=== PATIENT | female | born 1975 | race Caucasian/White ===

== ENCOUNTER 2025-04-24 11:27 | Emergency (ER) | payer MEDICARE, OTHER, SELFPAY ==
--- OUTSIDE RECORDS SUMMARY | 2025-04-23 08:45 | XMS_ITS | Encounter Summary ---
Author Organization [facility] Address 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 Name Role Phone Unavailable Primary Care Provider Unavailabl e Reason for Visit * Eval and Treat (Routine) - Authorized Specialty Diagnoses / Procedures Referred By Nba linares Referred To Contact Occupational Therapy Diagnoses cog Procedures OT EVAL AND TREAT OT EVALUATION Lidia Heck PA-C [address] [place] [address] Phone: tel: fax: Laury Steen Occupational Therapist Referral ID Status Reason Start Date Expiration Date V isits Requested Visits Authorized [id number] Authorized 02/01/2025 01/16/2026 1 99 Encounter Details Date Type Department Care Team (Late st Contact Info) Description 04/23/2025 8:45 AM CDT - 04/23/2025 11:59 PM CDT Hospital Encounter [facility] Occupational Therapy Services [address] [facility] [address] [facility] [address] [place] [phone] Lidia Heck PA-C [address] [place] [address] Laury Steen Occupational Therapist Arrived Discharge Disposition: Home or Self Care Social History Tobacco Use Types Packs/Day Years Used Date Smoking Tobacco: Never Smokeless Tobacco: Never Alcohol Use Standard Drinks/Week Comments Never 0 (1 standard drink = 0.6 oz pur e alcohol) Comments Unknown Sex and Gender Information Value Date Recorded Sex Assigned at Not on file 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 60 Tablet 1 04/18/2025 PARoxetine HCl (PAXIL) 20 mg tablet Take 1 Tablet (20 mg) by mouth daily. 30 Tablet 1 04/18/2025 05/18/2025 ALPRAZolam (XANAX XR) 0.5 mg Extended Release 24 hour tabletIndications :ILA (generalized anxiety disorder) Take 1 Tablet (0.5 mg) by mouth 2 times daily. 60 Tablet 04/18/2025 amLODIPine (NORVASC) 10 mg tablet Take 10 mg by mouth daily. nortriptyline (PAMELOR) 50 mg capsule Take 50 mg by mouth daily at bedtime. pantoprazole (PROTONIX) 40 mg Tablet, Delayed Release (E.C.) Take 40 mg by mouth daily. prochlorperazine maleate (COMPAZINE) 10 mg tablet Take 10 mg by mouth every 6 hours as needed for Nausea/Emesis . multivitamin (DAILY-MILLIE) tablet Take 1 Tablet by mouth daily. gabapentin (NEURONTIN) 300 mg capsule Take 300 mg by mouth 2 times daily. propranoloL (INDERAL) 20 mg tablet Take 20 mg by mouth 2 times daily. folic acid (FOLVITE) 1 mg tablet Take 1 mg by mouth daily. baclofen (LIORESAL) 10 mg tablet Take 5 mg by mouth 2 times daily. 5 mg in AM and 10 mg at night documented as of this encounter Miscellaneous Notes * Therapy Treatment - Laury Steen, Occupational Therapist - 04/23/2025 9:00 AM CDT Images from the original note were not included. Outpatient Occupational Therapy Adult Daily Documentation [address] [place] [phone] Patient Name: Linh Wang Date of : 1975 Referring Physician(s): Lidia Heck PA-C Insurance Name: Payor: MEDICARE / Plan: MEDICARE PART A AND B / Product Type: Medicare / Visit No.: 9 Authorized Visits: Medical necessity Visits until Progress Note: 9/10 Today's Date: 04/23/2025 Initial Exam/SOC date: 02/01/2025 Diagnosis: G83.4 Cauda Equina syndrome Treatment Diagnosis: R41.89: Other symptoms and signs involving cognitive functions and awareness Time In: 900 Time Out: 1000 Total Treatment Time: 60 Medical Precautions: fall precautions SUBJECTIVE Current complaints/Gains: Pt feels like her tremors are gone, she feels more mental clarity and improved memory. Pt reports she and her split up over the weekend due to his worsening dementia. She reports she's crying more than not and can't deal with how mean he is. He is currently stayingon the back porch of the home. She requests activity ideas and handout packets to complete during recovery of upcoming surgery. Primary Concern/Chief Complaint: Short term memory, processing speed, attention, word find, dual tasking, time perception, misplacing items and difficulty remembering appointments, important dates and family members names. Patient Goals: Improve cognitive function. Past Medical History: Diagnosis Date Anxiety Depression Hypertension Past Surgical History: Procedure Laterality Date HX APPENDECTOMY HX CHOLECYSTECTOMY HX ESOPHAGOGASTRODUODENOSCOPY 02/17/2023 HX HYSTERECTOMY HX TONSILLECTOMY Allergies Allergen Reactions Aloe Hives, Itching and Unknown Aloe vera Aloe Vera-Dimethicone Hives Dulaglutide Diarrhea, Hives, Nausea and Vomiting and Other (See Comments) Abdominal pain Exenatide Microspheres Diarrhea, Hives, Unknown and Nausea and Vomiting Ondansetron Hives Rosuvastatin Unknown and Shortness of Breath/Wheezing Oxycodone-Acetaminophen Hallucination Sulfacetamide Unknown Sulfa drugs Cannot recall reaction Sulfamethoxazole-Trimethoprim Unknown Triamterene-Hydrochlorothiazid Unknown Current Outpatient Medications on File Prior to Encounter Medication Sig Dispense Refill busPIRone (BUSPAR) 30 mg Tablet Take 1 Tablet (30 mg) by mouth 2 times daily. 60 Tablet 1 PARoxetine HCl (PAXIL) 20 mg tablet Take 1 Tablet (20 mg) by mouth daily. 30 Tablet 1 ALPRAZolam (XANAX XR) 0.5 mg Extended Release 24 hour tablet Take 1 Tablet (0.5 mg) by mouth 2 times daily. 60 Tablet 0 amLODIPine (NORVASC) 10 mg tablet Take 10 mg by mouth daily. nortriptyline (PAMELOR) 50 mg capsule Take 50 mg by mouth daily at bedtime. pantoprazole (PROTONIX) 40 mg Tablet, Delayed Release (E.C.) Take 40 mg by mouth daily. prochlorperazine maleate (COMPAZINE) 10 mg tablet Take 10 mg by mouth every 6 hours as needed for Nausea/Emesis. multivitamin (DAILY-MILLIE) tablet Take 1 Tablet by mouth daily. gabapentin (NEURONTIN) 300 mg capsule Take 300 mg by mouth 2 times daily. propranoloL (INDERAL) 20 mg tablet Take 20 mg by mouth 2 times daily. folic acid (FOLVITE) 1 mg tablet Take 1 mg by mouth daily. baclofen (LIORESAL) 10 mg tablet Take 5 mg by mouth 2 times daily. 5 mg in AM and 10 mg at night No current facility-administered medications on file prior to encounter. OBJECTIVE Therapeutic Activities/CPT 97807, 60 mins, 4 units: - Orientation to date, season, weather written on board for orientation throughout session - Orientation to time; time awareness, cognitive function (not completed) - Article reading followed by discussion; current event, thought promotion and elaboration. Articletopic: Traffic around PCSD - VDS/ADS; short term recall - RADS/RVDS, visual and auditory alphanumerics, sentence reversals; working memory, attention, executive function (alphanumerics not completed) - Rapid item naming (body parts) in 1 minute; processing speed, working memory (not completed) - Red theraband 1 set x 20 of rows, horizontal ab/adduction coupled with ADS/RADS for dual tasking - Delayed word recall of 4 and 5 words, delay of 4-5 minutes throughout session with interruption; recall, attention, delayed recall - Flashmaster addition, subtraction, multiplication level 3 60 seconds; processing speed, recall, problem solving - Spot it coupled with wooden visual perceptual puzzle; divided attention, working memory, visual perception, problem solving, processing speed - Seated ball weave and ball catch coupled with VDS/RVDS; dual tasking, recall, attention, coordination Therapeutic Exercise/CPT 40445 mins, units: Self Care/Home Management/CPT 23708 mins, units: OBJECTIVE FINDINGS Patient oriented to season, weather, month, year, day of week. Cues to recall date of month. Good discussion about article. Flashmaster addition 96%, subtraction 26/26 100%, multiplication 15/17 88%. ADS 6+, RADS 3+. Sentence reversals of 4. VDS 7+, RVDS 5+. Able to solve wooden visual perceptual puzzle with no assist. Good participation and ability to reorient herself and complete task during divided attention task. Pt with fair dual tasking ball challenges with VDS/RVDS. During a delayed recall challenge, pt is able to recall 3/4 words, 4/4 words and 4/5 words after a 4-5 minute delay. ASSESSMENT Assessment: Pt is a 49 y.o. female with a diagnosis of Cauda Equina Syndrome. Her main concern at this time is her cognition. She presents demonstrates deficits in short term memory, processing speed, attention,word find, dual tasking, time perception, misplacing items and difficulty remembering appointments,important dates and family members names. She would benefit from skilled OT to improve cognitive functions to return to [facility] for ADL, IADL, leisure and home duties. Education: No new education. Rehab Potential: Good Contraindications to Therapy: None Patient Problems: - Cognitive impairment GOALS Short Term Goals: 1: (6 weeks) Pt will demonstrate a delayed recall of 5 items in sequential order on 4/5 trials for improved attention and delayed recall. 2: (6 weeks) Patient to report improved word find during conversations with family and friends on90% of opportunities. 3: (6 weeks) Patient to demonstrate short term visual and auditory recall of 7+ for improved short term memory, recall of family members names, and decreased misplacing of items. Care Home Goals: 1: (12 weeks) Patient will demonstrate an increase of 2-3 points or greater on SLUMS assessment indicating improved cognitive performance. 2: (12 weeks) Patient to demonstrate reverse digit spans of 5+ for improved executive function and working memory. 3: (12 weeks) Patient will consistently state the time within a 60 minute time frame during an OTsession on 90% of trials for improved time perception required for appointments, cooking and recentevents. PLAN Patient to be seen 1 time per week for 12 weeks total by 04/25/2025 for the following skilled therapeutic interventions to address limitations in ADL's, functional limitations, and goals listed above:HEP Instruction, Patient/Caregiver Education, Functional Skills/Cognitive Re-Training, Activities of Daily Living and Self Help, Instrumental Activities of Daily Living. THERAPIST: Laury Steen, ARIANE, OTR/L, CDP License #[id number] DATE: 04/23/2025 documented in this encounter Plan of Treatment Upcoming Encounters Date Type Department Care Team (Late st Contact Info) Description 04/26/2025 10:00 AM CDT Appointment [facility] Physical Therapy Services [address] [place] [phone] Antonia Ferreira MD [address] [place] [phone] Georgia Nathan, Snow Removal Supervisor 04/30/2025 9:00 AM CDT Appointment [facility] Occupational Therapy Services [address] [place] [phone] Lidia Heck PA-C [address] [place] [phone] Laury Steen Occupational Therapist 04/30/2025 10:00 AM CDT Appointment [facility] Physical Therapy Services [address] [place] [phone] Antonia Ferreira MD [address] [place] [phone] Olegario Castro, Snow Removal Supervisor 05/03/2025 10:00 AM CDT Appointment [facility] Physical Therapy Services [address] [place] [phone] Antonia Ferreira MD [address] [place] [phone] Diana Trejo, Snow Removal Supervisor 05/07/2025 9:00 AM CDT Appointment [facility] Occupational Therapy Services [address] [place] [phone] Lidia Heck PA-C [address] [place] [phone] Laury Steen, Occupational Therapist 05/07/2025 10:00 AM CDT Appointment [facility] Physical Therapy Services [address] [place] [phone] Antonia Ferreira MD [address] [place] [phone] Nancy Coughlin, Snow Removal Supervisor 05/09/2025 8:00 AM CDT Confidential [facility] [address] [phone] [phone] 05/10/2025 11:00 AM CDT Appointment [facility] Physical Therapy Services [address] [place] [phone] Antonia Ferreira MD [address] [place] [phone] Diana Trejo, Snow Removal Supervisor 05/14/2025 9:00 AM CDT Appointment [facility] Occupational Therapy Services [address] [place] [phone] Lidia Heck PA-C [address] [place] [phone] Laury Steen, Occupational Therapist 05/14/2025 10:00 AM CDT Appointment [facility] Physical Therapy Services [address] [place] [phone] Antonia Ferreira MD [address] [place] [phone] Nancy Coughlin, Snow Removal Supervisor 05/17/2025 11:00 AM CDT Appointment [facility] Physical Therapy Services [address] [place] [address] [place] [phone] Antonia Ferreira MD [address] [place] [phone] Diana Trejo, Snow Removal Supervisor 05/21/2025 9:00 AM CDT Appointment [facility] Occupational Therapy Services [address] [place] [phone] Lidia Heck PA-C [address] [place] [phone] Laury Steen, Occupational Therapist 05/21/2025 10:00 AM CDT Appointment [facility] Physical Therapy Services [address] [place] [address] [place] [phone] Antonia Ferreira MD [address] [place] [phone] Nancy Coughlin Snow Removal Supervisor 05/22/2025 9:00 AM CDT Confidential [facility] [address] [place] [phone] Terri Trevino, [address] [place] [phone] 05/24/2025 11:00 AM CDT Appointment [facility] Physical Therapy Services [address] [place] [address] [place] [phone] Antonia Ferreira MD [address] [place] [address] Diana Trejo Snow Removal Supervisor 05/28/2025 9:00 AM CDT Appointment [facility] Occupational Therapy Services [address] [place] [phone] Lidia Heck PA-C [address] [place] [phone] Laury Steen Occupational Therapist 05/28/2025 10:00 AM CDT Appointment [facility] Physical Therapy Services [address] [place] [phone] Antonia Ferreira MD [address] [place] [address] Olegario Castro Snow Removal Supervisor 05/31/2025 11:00 AM CDT Appointment [facility] Physical Therapy Services [address] [place] [phone] Antonia Ferreira MD [address] [place] [address] Diana Trejo Snow Removal Supervisor 06/04/2025 9:00 AM CDT Appointment [facility] Occupational Therapy Services [address] [place] [phone] Lidia Heck PA-C [address] [place] [phone] Laury Steen Occupational Therapist 06/04/2025 10:00 AM CDT Appointment [facility] Physical Therapy Services [address] [place] [phone] Antonia Ferreira MD [address] [place] [phone] Diana Trejo Snow Removal Supervisor 06/07/2025 11:00 AM CDT Appointment [facility] Physical Therapy Services [address] [place] [address] [address] [place] [phone] Antonia Ferreira MD [address] [place] [phone] Diana Trejo Snow Removal Supervisor documented as of this encounter Visit Diagnoses Not on filedocumented in this encounter
--- OUTSIDE RECORDS SUMMARY | 2025-04-23 08:46 | XMS_ITS | Encounter Summary ---
Author Organization [employer] Address [address] [place] [address] Care Team Providers Care Business Development Professional Name Role Phone Unavailable Primary Care Provider Unavailabl e Encounter Details Date Type Department Care Team (Late st Contact Info) Description 04/23/2025 8:46 AM CDT - 04/23/2025 11:59 PM CDT Hospital Encounter [facility] Physical Therapy Services [address] [place] [address] [address] [place] [phone] Antonia Ferreira MD [address] [place] [phone] Olegario Castro Candle Wrapping Machine Operator Arrived Discharge Disposition: Home or Self Care Social History Tobacco Use Types Packs/Day Years Used Date Smoking Tobacco: Never Smokeless Tobacco: Never Alcohol Use Standard Drinks/Week Comments Never 0 (1 standard drink = 0.6 oz pur e alcohol) Comments Unknown Sex and Gender Information Value Date Recorded Sex Assigned at Not on file Legal Sex Female 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 Physical Therapy Daily Note [address] [place] [phone] Patient Name: Linh Wang Date of : 1975 Referring Physician(s): Antonia Ferreira MD Insurance Name: Payor: MEDICARE / Plan: MEDICARE PART A AND B / Product Type: Medicare / Visit count for Progress Note: 09/14 Return to Date: Medicare Recert Date: 07/12/25 KX MODIFIER: YES Today's Date: 04/23/2025 Initial Exam/SOC date: 04/23/2025 Injury/Illness Onset Date: 04/23/2025 Diagnosis: M62.81 Muscle Weakness, generalized; M48.05 - Spinal stenosis of thoracolumbar region Treatment Diagnosis:M62.81 Muscle Weakness, generalized; M48.05 - Spinal stenosis of thoracolumbar region Precautions: spinal column replacement from T3-S1; fall risk; decreased sensation Time In: 10:00 AM Time Out: 11:00 AM Subjective History of Present Condition/Mechanism of Injury: PMHx: DDD and scoliosis, then had spinal column replacement from T3-S1 08/11/22 via two different surgeries. She has no reflexes below the waist. Sheis to do no BLT, and no pushing or pulling >30 lbs. She states she has no feeling along her backand her legs. Says her right side is weaker than the L. Pt is getting fitting for ankle braces to wear at night since she is starting to get contractures. Current Concern/Chief Complaint: P Current Functional Limitations: difficulty walking, stairs, bending, dressing, and carrying heavy objects Pain Scale: Current 6/10, Best 5/10, Worst 10/10 Location: LBP Pain medication: baclofen, has tramadol and medical marijuana also General Health: Fair Occupational History: disabled Falls in the past 6 months? Mid September 2023 Medical History: Past Medical History: Diagnosis Date Anxiety Depression Hypertension Past Surgical History: Past Surgical History: Procedure Laterality Date HX APPENDECTOMY HX CHOLECYSTECTOMY HX ESOPHAGOGASTRODUODENOSCOPY 02/17/2023 HX HYSTERECTOMY HX TONSILLECTOMY Current Medications: Current Outpatient Medications Medication busPIRone (BUSPAR) 30 mg Tablet PARoxetine HCl (PAXIL) 20 mg tablet ALPRAZolam (XANAX XR) 0.5 mg Extended Release 24 hour tablet amLODIPine (NORVASC) 10 mg tablet nortriptyline (PAMELOR) 50 mg capsule pantoprazole (PROTONIX) 40 mg Tablet, Delayed Release (E.C.) prochlorperazine maleate (COMPAZINE) 10 mg tablet multivitamin (DAILY-MILLIE) tablet gabapentin (NEURONTIN) 300 mg capsule propranoloL (INDERAL) 20 mg tablet folic acid (FOLVITE) 1 mg tablet baclofen (LIORESAL) 10 mg tablet No current facility-administered medications for this encounter. Imaging: x-rays for check up, last one was in June Medical History Review: Moderate Complexity - The pt has a history of present problem with a history of 1-2 personal factors and/or comorbidities that impact the plan of care. Mental Status/Cognitive Function Appears Impaired? No Patient Goals: to be able to walk and complete daily tasks without difficulty/pain Objective Outcome Measurement Tools Pain Disability Index: 49/60 prior 39/60 Now: 54/60 (12/17/24) Remains: 54/60 (08-07-24) 54/60 (10-05-24) SHEETS IE 28 SHEETS 32 02/21/24 SHEETS 33 04/03/24 SHEETS 32 05/11/23 SHEETS 31 06/20/24 SHEETS 31 08/07/24 SHEETS 31 10/05/24 SHEETS 31 11/09/24 SHEETS 30 12/17/24 SHEETS (01/25/25 1695) Observation Gait: Decreased DF, scissoring gait, spasticity/decreased coordination noted; uses cane in left hand (using 3 wheeled walker today) Standing Posture: Pt stands with slight left lateral lean, Additional Comments: has WC, big walker, 3 wheeled walker, and cane Range of Motion Lumbar AROM Flexion 20 Extension (5) Right Left Lateral Flexion 0 2 Ankle DF AROM: L = (10) deg, R = (5) deg Additional Comments: Pt is unable to laterally flex to the right. Strength Gross Muscle Tests Lower Hip Right Left Flexion 4/5 4-/5 Abduction 4+/5 4-/5 Extension 3+/5 3+/5 Adduction 4/5 4-/5 Knee Flexion 4+/5 4-/5 Extension 4+/5 4/-5 Ankle Dorsiflexion 4-/5 4-/5 Abdominals Upper 3/5 Lower Additional Comments: Not tested due to 9/10 pain after recent MRI. Special Tests Right Left 90/90 Hamstring Flexibility (25) degrees (35) degrees Additional Comments: spasticity and rigidity noted throughout tx Palpation Sensation: Decreased: S2 on right, L5 on right, S2 bilateral Absent: L3 bilateral, L4 bilateral, L5 on left, S1 bilateral Treatment Direct Timed Codes Comments Manual Therapy: Time 00 min Percussor to L hip/glutes/ITB Aquatics: 0 min Ambulation fwd/retro Shoulder rolls/scap squeezes, horizontal abd Standing hip marching, abd, ext Heel/toe raises Mini squats Rows and ext with green Tband Paloff press with green bug against wall Sit to stand Reverse crunch with noodle Shoulder horizontal abd/add Standing balance NBOS EC, modified tandem, SLS Seated abd, add with ball HSS, piriformis stretch Toe taps on step Resisted walking in jets (with and without red band) Therapeutic Exercise: Time 30 min Nustep Ankle tband 4 way with red SLR x 20 ea Clamshells x 20 ea Lap walking x 4 Seated HS curl machine 50# Neuromuscular Re-ed:Time 30 min Seated Core stab. 4 way Cable walkouts 3 way 20# x 3 ea Supine bugs 10 x 5 Towel scrunches 1' Toe fans 1' Seated wobble board x 20 B in all planes Balance NBOS EO, WBOS EC, tandem on Airex KX MODIFIER: YES Untimed Codes Group Therapy: 0 min Electrical Stimulation: and Hot/Cold Packs: 0 min MHP and IFC- STRANDING MACHINE OPERATOR LLL concurrent: Direct Minutes: Treatment Minutes: 65 min 65 min Assessment Assessment/Diagnosis: Pt. Amb. 240ft x 5 with u-step; demonstrating good compliance to it. Pt did not required sitting breaks this morning. Transfers from w/c to mat independently along with bed mobility. She exhibits progress with cores stability and priyanka. To ex. Without setbacks. She does still showing stability while standing requiring AD in order to prevent or decrease chance of falling. 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 Rehab Potential: Good Contraindications to Therapy: No Patient Problems: - pain - weakness - decreased ROM - decreased flexibility Goals: Short Term: 3 Weeks 100% Pt to be independent in progressive HEP. daily Short Term: 3 Weeks 55% Pt to decrease score on PDI to 10/60 to indicate that pain is no longerrestricting her ability to put on clothes. Machine Grinder: 6 Weeks 75% Pt to improve score on Sheets from 27 to 40 so that she is able to pick upobjects off the floor safely. Detention: 6 Weeks 60% Pt to improve gross B LE strength to 5/5 in all directions to complete all ADL's without difficulty progressing Machine Grinder: 6 Weeks 75% Pt to complete supine to sit independently without pain or difficulty. progressing Machine Grinder: 6 Weeks 75% Pt to return to full PLOF to perform all ADL's and community participation without difficulty/weakness. progressing Plan [] Medicaid Certification [x] Medicare Certification Frequency: 3 times a week Duration: 12 Weeks From: 04/19/25 To: 07/12/25 Instructions: Progress per POC. Treatment to be Provided: Procedures Therapeutic Exercises, Therapeutic Activity, Gait Training , Neuromuscular Rehabilitation, Manual Therapy, Iontophoresis, and Patient Education Modalities Electrical Stimulation, Ultrasound/Phonophoresis, Infrared Light, Vasopneumatic, Cryotherapy, and Hot Packs Please sign and return: Fax#: Olegario Castro PTA License #[id number] I certify the need for these services furnished under this plan of treatment and while under my care. Physician/Non-Physician Practitioner (NPP) Signature: Date: Time: documented in this encounter Plan of Treatment Upcoming Encounters Date Type Department Care Team (Late st Contact Info) Description 04/26/2025 10:00 AM CDT Appointment [facility] Physical Therapy Services [address] [place] [phone] Antonia Ferreira MD [address] [place] [address] Georgia Nathan Candle Wrapping Machine Operator 04/30/2025 9:00 AM CDT Appointment [facility] Occupational Therapy Services [address] [place] [phone] Lidia Heck PA-C [address] [place] [phone] Laury Steen, Occupational Therapist 04/30/2025 10:00 AM CDT Appointment [facility] Physical Therapy Services [address] [place] [address] [phone] Antonia Ferreira MD [address] [place] [address] Olegario Castro, Candle Wrapping Machine Operator 05/03/2025 10:00 AM CDT Appointment [facility] Physical Therapy Services [address] [place] [phone] Antonia Ferreira MD [address] [place] [address] Diana Trejo, Candle Wrapping Machine Operator 05/07/2025 9:00 AM CDT Appointment [facility] Occupational Therapy Services [address] [place] [address] [phone] Lidia Heck PA-C [address] [place] [phone] Laury Steen, Occupational Therapist 05/07/2025 10:00 AM CDT Appointment [facility] Physical Therapy Services [address] [place] [phone] Antonia Ferreira MD [address] [place] [address] Nancy Coughlin, Candle Wrapping Machine Operator 05/09/2025 8:00 AM CDT Confidential [facility] [address] [phone] Martina Traore, [address] [phone] 05/10/2025 11:00 AM CDT Appointment [facility] Physical Therapy Services [address] [place] [phone] Antonia Ferreira MD [address] [place] [phone] Diana Trejo Candle Wrapping Machine Operator 05/14/2025 9:00 AM CDT Appointment [facility] Occupational Therapy Services [address] [place] [phone] Lidia Heck PA-C [address] [place] [phone] Laury Steen Occupational Therapist 05/14/2025 10:00 AM CDT Appointment [facility] Physical Therapy Services [address] [place] [phone] Antonia Ferreira MD [address] [place] [phone] Nancy Coughlin Candle Wrapping Machine Operator 05/17/2025 11:00 AM CDT Appointment [facility] Physical Therapy Services [address] [place] [phone] Antonia Ferreira MD [address] [place] [phone] Diana Trejo Candle Wrapping Machine Operator 05/21/2025 9:00 AM CDT Appointment [facility] Occupational Therapy Services [address] [place] [phone] Lidia Heck PA-C [address] [place] [phone] Laury Steen Occupational Therapist 05/21/2025 10:00 AM CDT Appointment [facility] Physical Therapy Services [address] [place] [phone] Antonia Ferreira MD [address] [place] [phone] Nancy Coughlin, Candle Wrapping Machine Operator 05/22/2025 9:00 AM CDT Confidential [facility] [address] [place] [address] Terri Trevino, [facility] [address] [facility] [address] [place] [phone] 05/24/2025 11:00 AM CDT Appointment [facility] Physical Therapy Services [address] [place] [address] [place] [phone] Antonia Ferreira MD [address] [place] [phone] Diana Trejo Candle Wrapping Machine Operator 05/28/2025 9:00 AM CDT Appointment [facility] Occupational Therapy Services [address] [place] [address] [place] [phone] Lidia Heck PA-C [address] [place] [phone] Laury Steen, Occupational Therapist 05/28/2025 10:00 AM CDT Appointment [facility] Physical Therapy Services [address] [place] [address] [place] [phone] Antonia Ferreira MD [address] [place] [phone] Olegario Castro Candle Wrapping Machine Operator 05/31/2025 11:00 AM CDT Appointment [facility] Physical Therapy Services [address] [place] [address] [place] [phone] Antonia Ferreira MD [address] [place] [phone] Diana Trejo Candle Wrapping Machine Operator 06/04/2025 9:00 AM CDT Appointment [facility] Occupational Therapy Services [address] [place] [phone] Lidia Heck PA-C [address] [place] [phone] Laury Steen, Occupational Therapist 06/04/2025 10:00 AM CDT Appointment [facility] Physical Therapy Services [address] [place] [phone] Antonia Ferreira MD [address] [place] [phone] Diana Trejo Candle Wrapping Machine Operator 06/07/2025 11:00 AM CDT Appointment [facility] Physical Therapy Services [address] [place] [phone] Antonia Ferreira MD [address] [place] [phone] Diana Trejo Candle Wrapping Machine Operator documented as of this encounter Visit Diagnoses Not on filedocumented in this encounter
--- NOTE | ~2025-04-24 | CT_ITS ---
EXAM: CT brain wo con - 04/24/2025 12:58 CDT History: 49 years old Female with injury COMPARISON: None available. PROCEDURE: CT of the head without contrast. Axial, sagittal and coronal reformatted planes were evaluated. Automatic exposure control was used for this study. FINDINGS: BRAIN PARENCHYMA: No acute hemorrhage. No mass effect or herniation. Ibanez-white matter differentiation is maintained. Normal appearance of cortex. VENTRICLES/ EXTRA-AXIAL SPACES: No hydrocephalus or extra-axial fluid collection. EXTRACRANIAL STRUCTURES: No calvarial fracture. Near complete opacification of the left maxillary sinus. Hyperostosis frontalis. IMPRESSION: No evidence for acute intracranial hemorrhage or calvarial fracture. Near complete opacification of the left maxillary sinus. Correlate clinically to rule out acute sinusitis. Reviewed, dictated and finalized at location A. IMPRESSION: No evidence for acute intracranial hemorrhage or calvarial fracture. Near complete opacification of the left maxillary sinus. Correlate clinically t o rule out acute sinusitis.
--- NOTE | ~2025-04-24 | XR_ITS ---
EXAM/ PROCEDURE: XR shoulder RT min 2V, XR humerus RT, XR elbow RT min 3V - 04/24/2025 12:43 CDT HISTORY: 49 years old Female with RT SHOULDER PAIN ONSET AFTER FALL COMPARISON: None available FINDINGS/ IMPRESSION: Right shoulder: There are no fractures or dislocations.Joint space narrowing, subchondral sclerosis, subchondral cyst formation and osteophyte formation, compatible with moderate osteoarthritis. Intact posterior spinal fusion hardware Right humerus: There are no fractures or dislocations.Joint spaces are within normal limits. Right elbow: There are no fractures or dislocations.Joint space narrowing, subchondral sclerosis, subchondral cyst formation and osteophyte formation, compatible with mild osteoarthritis. Reviewed, dictated and finalized at location A.
[2025-04-24 11:38] VITALS: BP 130/90; PULSE 83; RESP 16; TEMP 36.5; O2SAT 100
--- OUTSIDE RECORDS SUMMARY | 2025-04-24 12:23 | XMS_ITS | Continuity of Care Document ---
Author Name [facility] Organization [facility] Care Team Providers Care Dental Assistant Medical Assistant Name Role Phone [facility] Unavailable Unavailable Medications Combined list of outpatient medications from Department of Defense and Veterans Affairs facilities.Medications provided include 1) outpatient medications from the last 15 months, and 2) patient-reported medications. Medication Details Route Status Patient Instructions Prescription Expires Prescription Number Last Dispense Date Ordering Provider Order Date Order Qty Source ALPRAZOLAM (ALPRAZOLAM ), 0.5MG, TABLET, ORAL, ACTAVIS ELIZABE, 1000 ea. BOTTLE Active [id number] 4 2023 60 Pharmac y Data Transac tion Service Facilit y amLODIPine 2.5 mg oral tablet TAKE ONE TABLET BY MOUTH EVERY DAY, # 90 EA, 1 total refill(s ), Acute Complet ed 02/11/20232022 90.0 Ambulat ory Pharmac y busPIRone 15 mg oral tablet TAKE ONE TABLET BY MOUTH TWICE A DAY, # 180 EA, 1 total refill(s ), Acute Complet ed 02/11/20232022 180.0 Ambulat ory Pharmac y BUSPIRONE HCL (buspirone HCl), 15 MG, TABLET, ORAL, [facility], 500 ea. BOTTLE Active [id number] 4 2023 180 Pharmac y Data Transac tion Service Facilit y DOXYCYCLINE HYCLATE (doxycyclin e hyclate), 100 MG, CAPSULE, ORAL, [facility]IONA [facility], 500 ea. BOTTLE Active [id number] 4 2023 20 Pharmac y Data Transac tion Service Facilit y LINZESS (linaclotid e), 72 MCG, CAPSULE, ORAL, [employer] 30 ea. BOTTLE Active [id number] 4 2023 30 Pharmac y Data Transac tion Service Facilit y LINZESS (linaclotid e), 72 MCG, CAPSULE, ORAL, [employer] 30 ea. BOTTLE Active [id number] 4 2023 30 Pharmac y Data Transac tion Service Facilit y metoprolol tartrate 50 mg oral tablet TAKE ONE TABLET BY MOUTH EVERY DAY, # 90 EA, 1 total refill(s ), Acute Complet ed 02/11/2023 2 2022 90.0 Ambulat ory Pharmac y NORTRIPTYLI NE HCL (NORTRIPTYL INE HCL), 50MG, CAPSULE, ORAL, [employer], 90 ea. BOTTLE Active [id number] 4 2023 30 Pharmac y Data Transac tion Service Facilit y polyethylen e glycol 3350 with electrolyte s oral powder for reconstitut ion MIX AND DRINK 2 LITERS (HALF OF JUG) AT 5:00PM THE EVENING BEFORE THE PROCEDUR E AND 2 LITERS (OTHER HALF OF JUG) AT 4:00AM THE MORNING OF THE PROCEDUR E., # 4000 mL, 0 total refill(s ), Acute Complet ed 07/15/20232022 4000.0 Ambulat ory Pharmac y PROPRANOLOL HCL (propranolo l HCl), 20 MG, TABLET, ORAL, AMNEAL PHARMACE, 100 ea. BOTTLE Active [id number] 4 2023 180 Pharmac y Data Transac tion Service Facilit y rOPINIRole 2 mg oral tablet TAKE ONE TABLET BY MOUTH 1 TO 3 HOURS BEFORE BEDTIME, # 90 EA, 1 total refill(s ), Acute Complet ed 02/11/2023 2 2022 90.0 Ambulat ory Pharmac y TRAMADOL HCL (tramadol HCl), 50 MG, TABLET, ORAL, [facility] [facility], 1000 ea. BOTTLE Active [id number] 4 2023 60 Pharmac y Data Transac tion Service Facilit y Procedures Combined list of: 1) Procedures from Department of Veterans Affairs facilities going back up to thelast 18 months, not all VA non-surgical procedures are included; 2) All procedures from the Department of Defense facilities. Procedure Procedure Type Code Date Perfomer Comments Sourc e No data available for this section Ambulatory P harmacy Social History Combined list of available smoking, tobacco, and other social history from Department of Defense and Veterans Affairs facilities. Social History Type Response Date Comment Sourc e This section is an empty social history section. DoD Assessment and Plan Combined list of future care activities from Department of Defense and Veterans Affairs facilities (e.g., assessment and plan notes, appointments, orders, and referrals). Additional future care activities may be listed in the Plan of Care section. Result Assessment and Plan Date Source Assessment and Plan No data available for this section 04/24/2025 Ambulatory Pharmacy Functional Status Combined list of recent functional and cognitive assessments recorded at [facility] Functional Cardinal Measurement (FIM) Scale: 1 = Total Assistance (Subject = 0% +), 2 = Maximal Assistance (Subject = 25% +), 3 = Moderate Assistance (Subject = 50% +), 4 = Minimal Assistance (Subject = 75% +), 5 = Supervision, 6 = Modified Cardinal (Device), 7 = Complete Cardinal (Timely, Safely). Assessment Date/Time Source Assessment Type Assessment Skill Assessment Score Assessment Details No data available for this section
--- OUTSIDE RECORDS SUMMARY | 2025-04-24 12:25 | XMS_ITS | Encounter Summary ---
Author Organization [facility] Healthcare Address [address] [place] [address] Care Team Providers Care Vice President Fixed Income Name Role Phone Sofia Teresa NP Primary Care Provider [phone] Sofia Teresa NP Unavailable [phone] Dario Byrnes PhD Unavailable [phone] Lidia Heck Primary Care Provider [phone] Reason for Visit * Reason Onset Date Comments Pre-Procedure Instructions 02/22/2024 Encounter Details Date Type Department Care Team (Late st Contact Info) Description 02/22/2024 Telephone [facility] [address] [facility] [address] [place] [address] Smita Foster MD [address] [place] [address] Pre-Procedure Instructions Social History Tobacco Use Types Packs/Day Years Used Date Smoking Tobacco: Former Cigarettes 0.8 29.4 1 992 - 01/27/2021 Smokeless Tobacco: Never Social Connection and Isolation Panel Answer Date Recorded In a typical week, how many times do you talk on the phone with family, friends, or neighbors? More than three times a week 08/13/2022 How often do you get togethe r with friends or relatives? Three times a week 08/13/2022 How often do you attend chur ch or oriental orthodox services? 1 to 4 times per year 08/13/2022 Do you belong to any clubs o r organizations such as judaism groups, unions, fraternal or athletic groups, or school groups? No 08/13/2022 How often do you attend meet ings of the clubs or organizations you belong to? Never 08/13/2022 Are you , , di vorced, , never , or living with a partner? 08/13/2022 AUDIT-C Answer Date Recorded Q1: How often do you have a drink containing alcohol? Never 01/12/2024 Q2: How many drinks containi ng alcohol do you have on a typical day when you are drinking? Patient does not drink Q3: How often do you have si x or more drinks on one occasion? Never 01/12/2024 Overall Financial Resource Strain (CARDIA) Answe r Date Recorded How hard is it for you to pa y for the very basics like food, housing, medical care, and heating? Very hard 08/13/2022 PHQ-2 Answer Date Recorded PHQ-2 Total Score (If total score is 3 or more points, staff should administer the PHQ-9) 0 08/13/2022 Hunger Vital Sign Answer Date Recorded Within the past 12 months, y ou worried that your food would run out before you got the money to buy more. Never true 11/10/19 23 Within the past 12 months, t he food you bought just didn't last and you didn't have money to get more. Never true 11/09/2022 PRAPARE - Transportation Answer Date Re corded In the past 12 months, has l ack of transportation kept you from medical appointments or from getting medications? No 05/2022 In the past 12 months, has l ack of transportation kept you from meetings, work, or from getting things needed for daily living? No 08/13/2022 Housing Stability Vital Sign Answer Carlos Eduardo e Recorded In the last 12 months, was t here a time when you were not able to pay the mortgage or rent on time? Yes 08/13/2022 In the last 12 months, how many places have you lived? 1 08/13/2022 In the last 12 months, was t here a time when you did not have a steady place to sleep or slept in a nursing home (including now)? No 08/13/2022 Personal Safety Answer Date Recorded Have you ever been in or are you currently in a harmful physical or emotional relationship or is someone making you feel afraid or unsafe? 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 Author CCM Chronic Pain Care Plan Chronic Care Management Improving( 2:01 PM CDT) No Anamaria Paulino, RN Note: Problem: Chronic Pain Goals: 1. Minimize further functional decline 2. Maximize quality of life 3. Control pain Strategies: - Activity/exercise program recommendation - Conservative stepwise pain medicine strategy with multi-disciplinary approach - Recommend healthy lifestyle strategies and compensatory methods as needed documented as of this encounter Visit Diagnoses Not on filedocumented in this encounter Care Teams Vice President Fixed Income Relationship Specialty Start Date End Date Sofia Teresa NP [address] [address] PCP - General Family Medicine 07/01/22 08/21/24 Lidia Heck [place] [address] PCP - General Family Practice 08/22/24 Sofia Teresa NP [address] [address] Family Medicine 06/29/22 Dario Byrnes, PhD [address] [address] Referring Physician Psychology 07/21/22 documented as of this encounter
--- OUTSIDE RECORDS SUMMARY | 2025-04-24 12:25 | XMS_ITS | Encounter Summary ---
Author Organization [facility] Healthcare Address [address] [place] [address] Care Team Providers Care Author Name Role Phone Sofia Teresa NP Primary Care Provider [phone] Sofia Teresa NP Unavailable [phone] Dario Byrnes PhD Unavailable [phone] Lidia Heck Primary Care Provider [phone] Reason for Visit * Reason Onset Date Comments order 09/09/2023 Encounter Details Date Type Department Care Team (Late st Contact Info) Description 09/09/2023 Telephone [facility] [address] [facility] [address] [place] [address] Smita Foster MD [address] [facility] [address] [place] [address] order Social History Tobacco Use Types Packs/Day Years [...] week 08/13/2022 How often do you attend [facility] or mosque services? 1 to 4 times per year 08/13/2022 Do you belong to any clubs o r organizations such as buddhist groups, unions, fraternal or athletic groups, or school groups? No 08/13/2022 How often do you attend meet ings of the clubs or organizations you belong to? Never 08/13/2022 Are you , , di vorced, , never , or living with a partner? 08/13/2022 AUDIT-C Answer Date Recorded Q1: How often do you have a drink containing alcohol? Never 02/08/2023 Q2: How many drinks containi ng alcohol do you have on a typical day when you are drinking? Patient does not drink Q3: How often do you have si x or more drinks on one occasion? Never 02/08/2023 Overall Financial Resource Strain (CARDIA) Answe r [...] place to sleep or slept in a jail (including now)? No 08/13/2022 Personal Safety Answer Date Recorded Have you ever been in or are you currently in a harmful physical or emotional relationship or is someone making you feel afraid or unsafe? 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 Author CCM Chronic Pain Care Plan Chronic Care Management Improving( 2:01 PM CDT) No Anamaria Paulino RN Note: Problem: Chronic Pain Goals: 1. Minimize further functional decline 2. Maximize quality of life 3. Control pain Strategies: - Activity/exercise program recommendation - Conservative stepwise pain medicine strategy with multi-disciplinary approach - Recommend healthy lifestyle strategies and compensatory methods as needed documented as of this encounter Visit Diagnoses Not on filedocumented in this encounter Care Teams Author Relationship Specialty Start Date End Date Sofia Teresa NP [address] [address] PCP - General Family Medicine 07/01/22 08/21/24 Lidia Heck PA [address] [place] [address] [place] [address] PCP - General Family Practice 08/22/24 Sofia Teresa NP [address] [address] Family Medicine 06/29/22 Dario Byrnes, PhD [address] [address] Referring Physician Psychology 07/21/22 documented as of this encounter
--- OUTSIDE RECORDS SUMMARY | 2025-04-24 12:25 | XMS_ITS | Encounter Summary ---
Author Organization [facility] Address [address] [place] [address] Phone Care Team Providers Care Ecg Technician Name Role Phone Sofia Teresa NP Primary Care Provider [phone] Sofia Teresa NP Unavailable [phone] Dario Byrnes PhD Unavailable [phone] Lidia Heck Primary Care Provider [phone] Encounter Details Date Type Department Care Team (Late st Contact Info) Description 05/03/2024 Orders Only [facility] Scanning, Provider Social History Tobacco Use Types Packs/Day Years [...] often do you attend chur ch or hindu services? 1 to 4 times per year 08/13/2022 Do you belong to any clubs o r organizations such as catholic groups, unions, fraternal or athletic groups, or school groups? No 08/13/2022 How often do you attend meet ings of the clubs or organizations you belong to? Never 08/13/2022 Are you , , di vorced, , never , or living with a partner? 08/13/2022 AUDIT-C Answer Date Recorded Q1: How often do you have a drink containing alcohol? Never 03/01/2024 Q2: How many drinks containi ng alcohol do you have on a typical day when you are drinking? Patient does not drink Q3: How often do you have si x or more drinks on one occasion? Never 03/01/2024 Overall Financial Resource Strain (CARDIA) Answe r [...] place to sleep or slept in a correction (including now)? No 08/13/2022 Personal Safety Answer Date Recorded Have you ever been in or are you currently in a harmful physical or emotional relationship or is someone making you feel afraid or unsafe? 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 Author CCM Chronic Pain Care Plan Chronic Care Management Improving( 2:01 PM CDT) Anamaria Barksdale RN Note: Problem: Chronic Pain Goals: 1. Minimize further functional decline 2. Maximize quality of life 3. Control pain Strategies: - Activity/exercise program recommendation - Conservative stepwise pain medicine strategy with multi-disciplinary approach - Recommend healthy lifestyle strategies and compensatory methods as needed documented as of this encounter Procedures Procedure Name Priority Date/Time Associated Diagnosis Comments SCAN - LABS 05/03/2024 documented in this encounter Results * SCAN - LABS (05/03/2024) us Provider Scanning Final Result documented in this encounter Visit Diagnoses Not on filedocumented in this encounter Care Teams Ecg Technician Relationship Specialty Start Date End Date Sofia Teresa NP [address] [address] PCP - General Family Medicine 07/01/22 08/21/24 Lidia Heck [place] [address] PCP - General Family Practice 08/22/24 Sofia Teresa NP [address] [address] Family Medicine 06/29/22 Dario Byrnes, PhD [address] [address] Referring Physician Psychology 11/16/22 documented as of this encounter
--- OUTSIDE RECORDS SUMMARY | 2025-04-24 12:25 | XMS_ITS | Encounter Summary ---
Author Organization [facility] Address [address] [place] [address] Phone Care Team Providers Care Beef Pusher Name Role Phone Sofia Teresa RN CIRCULATING Unavailable [phone] Dario Byrnes PhD Unavailable [phone] Lidia Heck Primary Care Provider [phone] Encounter Details Date Type Department Care Team (Late st Contact Info) Description 04/12/2025 Results Follow-Up [facility] Endocr[facility] Metabolism and Lipid [address] [facility] [address] [place] [address] [place] [address] Lila Thomas PA [address] [place] [address] Albumin Creatinine Ratio, Urine, Lipid panel, Renal function panel, PTH Social History Tobacco Use Types Packs/Day Years Used Date Smoking Tobacco: Former Cigarettes 0.8 29.4 1 992 - 01/27/2021 Passive Smoke Exposure: Past Smokeless Tobacco: Never Social Connection and Isolation Panel Answer Date Recorded In a typical week, how many times do you talk on the phone with family, friends, or neighbors? More than three times a week 08/13/2022 How often do you get togethe r with friends or relatives? Three times a week 08/13/2022 How often do you attend [facility] or islam services? 1 to 4 times per year 08/13/2022 Do you belong to any clubs o r organizations such as oriental orthodox groups, unions, fraternal or athletic groups, or school groups? No 08/13/2022 How often do you attend meet ings of the clubs or organizations you belong to? Never 08/13/2022 Are you , , di vorced, , never , or living with a partner? 08/13/2022 AUDIT-C Answer Date Recorded Q1: How often do you have a drink containing alcohol? Never 03/25/2025 Q2: How many drinks containi ng alcohol do you have on a typical day when you are drinking? Patient does not drink Q3: How often do you have si x or more drinks on one occasion? Never 03/25/2025 Overall Financial Resource Strain (CARDIA) Answe r [...] the money to buy more. Never true 03/25/20 25 Within the past 12 months, t he food you bought just didn't last and you didn't have money to get more. Never true 03/25/2025 PRAPARE - Transportation Answer Date Re corded [...] making you feel afraid or unsafe? 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
--- OUTSIDE RECORDS SUMMARY | 2025-04-24 12:25 | XMS_ITS | Clinical Summary ---
Author Organization [facility] Address [address] [place] [address] Care Team Providers Care Oil Burner Repairer Name Role Phone Unavailable Primary Care Provider Unavailabl e Social History Tobacco Use Types Packs/Day Years Used Date Smoking Tobacco: Never Assessed Comments Unknown Sex and Gender Information Value Date Recorded Sex Assigned at Not on file Legal Sex Female 2:44 PM CDT Gender Identity Not on file Sexual Orientation Not on file Plan of Treatment Health Maintenance Due Date Last Done Comments Cervical Cancer Screening Pa p Smear (Age 30 to 64) Every 3 Years 1973 Colorectal Cancer Screening Colonoscopy (10 Years) 1973 Annual Physical 1976 Hepatitis C 1991 DTaP, Tdap and Td Vaccines ( 1 - Tdap) 1992 Hepatitis B Vaccines (1 of 3 - 19+ 3-dose series) 1992 Cervical Cancer Screening Pa p with HPV Testing (Age 30 to 64) Every 5 Years 2003 Cervical Cancer Screening with HPV 2003 Mammogram Screening 2013 Pneumococcal Vaccine: 50+ Ye ars (1 of 1 - PCV) 2023 Zoster Vaccines (1 of 2) 2023 COVID-19 Vaccine ( - 2023-2 5 season) 2024 Meningococcal B Vaccine Aged Out No l onger eligible based on patient's age to complete this topic Meningococcal Vaccine Aged Out No tony rome eligible based on patient's age to complete this topic RSV Immunizations Under 20 Months Aged Out No longer eligible based on patient's age to complete this topic Insurance
--- OUTSIDE RECORDS SUMMARY | 2025-04-24 12:25 | XMS_ITS | Encounter Summary ---
Author Organization [facility] Healthcare Address [address] [place] [address] Care Team Providers Care Bakery Technician Name Role Phone Sofia Teresa NP Primary Care Provider [phone] Sofia Teresa NP Unavailable [phone] Dario Byrnes PhD Unavailable [phone] Lidia Heck Primary Care Provider [phone] Reason for Visit * Reason Onset Date Comments [facility] Pre procedure instructions 10/14/2023 Encounter Details Date Type Department Care Team (Late st Contact Info) Description 10/14/2023 Telephone [facility] [address] [facility] [address] [place] [address] Smita Foster MD [address] [place] [address] [facility] Pre procedure instructions Social History Tobacco Use Types Packs/Day Years [...] often do you attend chur ch or lutheran services? 1 to 4 times per year 08/13/2022 Do you belong to any clubs o r organizations such as protestant groups, unions, fraternal or athletic groups, or [...] place to sleep or slept in a [place] [facility] (including now)? No 08/13/2022 Personal Safety Answer Date Recorded Have you ever been in or are you currently in a harmful physical or emotional relationship or is someone making you feel afraid or unsafe? 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
--- OUTSIDE RECORDS SUMMARY | 2025-04-24 12:25 | XMS_ITS | Patient Health Record ---
Author Organization [facility] [place] Address [address] [place], [place] [address] Care Team Providers Care Utility Worker Name Role Phone Sofia Teresa Primary Care Provider Rashid Huang Unavailable [phone] Lindsey Mark Unavailable Unavailable ALLERGIES Allergen (clinical drug ingredient) Drug/Non Drug Allergy documented on EMR Reaction Allergy Type Onset Date Status Aloe Unknown Drug Allergy Active hydrochlorothiazide Hydrochlorothiazide STOPS BREATHING Drug Allergy Active acetaminophen / oxycodone Percocet HALIUCINATIONS , HIVES, RESPIRATORY DISTRESS Drug Allergy Active pravastatin Pravastatin Sodium nausea and vomiting Drug Allergy Active Sulfacetamide Sod-Pred Unknown Drug Allergy Active Zofran anaphylaxis Drug Allergy Active REASON FOR REFERRAL No Information MEDICATIONS Medication SIG (Take, Route, Frequency, Duration) Notes Start Date End Date Status Pantoprazole Sodium 40 MG 1 tablet Orall y Once a day Active Baclofen 10 MG 1 tablet with food o r milk Orally at bedtime prn for 30 day(s) 11/03/2021 Active glipiZIDE 10 MG 1 tablet 30 minutes before breakfast Orally Once a day Not-Taking Januvia 100 MG 1 tablet Orally Once a day Not-Taking linaCLOtide 72 MCG 1 capsule at least 3 0 minutes before the first meal of the day on an empty stomach Orally Once a day Active Lisinopril 40 MG 1 tablet Orally Once a day Active Metoprolol Tartrate 50 MG 1 tablet with food Orally Twice a day Active Montelukast Sodium 10 MG 1 tablet Orally Once a day Active ALPRAZolam 0.25 MG 1 tablet Orally Twic e a day Active amLODIPine Besylate 2.5 MG 1 tablet Oral ly Once a day Active Escitalopram Oxalate 10 MG 1 tablet Oral ly Once a day Active Lantus 100 UNIT/ML Sliding scale Subcutaneous Not-Taking rOPINIRole HCl 2 MG 1 tablet 1 to 3 hour s before bedtime Orally Once a day for 90 days Active Pregabalin 100 MG 1 capsule Orally q 8 hours for 90 days 05/12/2022 Active CoQ-10 Not-Taking Cyclobenzaprine HCl 10 MG 1 tablet at be dtime as needed Orally Once a day Not-Taking Diclofenac Sodium 50 MG 1 tablet Orally Twice a day Not-Taking Fish Oil 1000 MG 1 capsule Orally Onc e a day Not-Taking SOCIAL HISTORY Tobacco Use: Social History Observation Description Date Details (start date - stop date) Former Smoker NA - NA Sex Assigned At : Social History Observation Description Sex Assigned At Unknown Tobacco Use/Smoking Question Answer Notes Are you a former smoker Tobacco use other than smoking: Question Answer Notes Are you an other tobacco user? No PROBLEMS Problem Type ICD Code Onset Dates Problem Status W/U Status Risk SNOMED Code Notes Problem Type 2 diabetes mellitus with diabetic neuropathy, unspecified (E11.40) Active confirmed Problem Bilateral primary osteoarthritis of hip (M16.0) Active confirmed Localized, primary osteoarthritis of the pelvic region and thigh (295810146) Problem Sacroiliitis, not elsewhere classified (M46.1) Active confirmed Solitary sacroiliitis (606216216) Problem Postlaminectomy syndrome, not elsewhere classified (M96.1) Active confirmed Post-lami nectomy syndrome (78316770) PLAN OF TREATMENT Pending Test Test Name Order Date CBC With Differential/Platelet 2 C-Reactive Protein, Quant 06/23/2022 ESR 06/23/2022 MRI : Lumbar with and without Contrast 1 MEDICAL (GENERAL) HISTORY Medical History History ICD Code DIABETES MELLITUS - NIDDM TYPE 2 HYPERTRIGLYCERIDEMIA- ONSET 05/24/2019 OBESITY DEPRESSIVE DISORDER ESSENTIAL HYPERTENSION ACUTE PHARYNGITIS BRONCHOSPASM GASTROESOPHAGEAL REFLUX DISEASE PEPTIC ULCER PARALYTIC - ONSET 11/06/2018 Surgical History Surgery Date(Month/Year) APPENDECTOMY - AT AGE 14 BACK SURGERY - L5-S1- dr. levine 2009 BACK SURGERY - L5-S1 1998 HYSTERECTOMY - PARTIAL- OVARIES LEFT 200 8 TONSLLIECTOMY - AT AGE 3 L4-L5 decompression-Dr. Dias 1 gastric bypass surgery
--- OUTSIDE RECORDS SUMMARY | 2025-04-24 12:25 | XMS_ITS | Encounter Summary ---
Author Organization [facility] Address [address] [place] [address] Care Team Providers Care Clinical Documentation Spec Name Role Phone Unavailable Primary Care Provider Unavailabl e Encounter Details Date Type Department Care Team (Late st Contact Info) Description 03/30/2018 Community Orders [facility] Keven Rao MD [address] [place] [id number] Social History Tobacco Use Types Packs/Day Years Used Date Smoking Tobacco: Never Assessed Comments Unknown Sex and Gender Information Value Date Recorded Sex Assigned at Not on file Legal Sex Female 2:44 PM CDT Gender Identity Not on file Sexual Orientation Not on file documented as of this encounter Plan of Treatment Not on file documented as of this encounter Visit Diagnoses Not on filedocumented in this encounter
--- OUTSIDE RECORDS SUMMARY | 2025-04-24 12:25 | XMS_ITS ---
Author Organization [facility] Address [address] [place] [address] Care Team Providers Care Clinical Education Specialist Name Role Phone Sofia Teresa SCIENCE ANALYST Unavailable [phone] Dario Byrnes PhD Unavailable [phone] Lidia Heck Primary Care Provider [phone] Active Problems Problem Noted Date Diagnosed Date High serum parathyroid hormone (PTH) 04/12/2025 History of bariatric surgery 12/20/2024 BMI 32.0-32.9,adult 11/14/2024 Class 1 obesity due to exces s calories with serious comorbidity and body mass index (BMI) of 33.0 to 33.9 in adult [E66.811, E66.09, Z68.33] 11/14/2024 Cauda equina syndrome 09/10/2024 Severe protein-calorie malnutrition 09/10/2024 Sacroiliitis, not elsewhere classified Diabetic peripheral neuropat hy associated with type 2 diabetes mellitus 09/10/2024 BMI 33.0-33.9,adult 07/05/2024 Weakness of both lower extremities 04/19/2024 Nonalcoholic fatty liver 12/30/2023 Nonalcoholic steatohepatitis 12/30/2023 JOHNSON (nonalcoholic steatohepatitis) 11/10/2023 Spinal stenosis of lumbar region with radiculopa thy 08/18/2022 Fusion of lumbar spine 08/11/2022 Preop testing 08/10/2022 Spinal stenosis 07/19/2022 Saddle anesthesia 06/30/2022 S/P bariatric surgery 06/16/2022 Bradycardia 02/12/2022 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/12/2022 Restless legs 02/12/2022 Mixed anxiety and depressive disorder 01/26/2022 NAFLD (nonalcoholic fatty liver disease) 022 Hyperlipidemia 10/05/2021 Low back pain 10/05/2021 Major depressive disorder, r ecurrent episode, in full remission 10/05/2021 Panic attack 10/02/2021 Spinal stenosis of lumbar region 05/16/2021 Overview (05/16/2021): Added automatically from request for surgery [id number] Irritable bowel syndrome 02/06/2021 Tobacco use disorder 01/06/2021 Essential hypertension 12/08/2020 Lumbar radiculopathy, right 08/12/2020 Assessment & Plan (09/29/2020 1:05 PM SPOOL SANDER): Patient shows ongoing active and chronic denervation and a right L5-S1 distribution. She has had prior surgical intervention. Given her worsening symptoms, lack of response to physical therapy, and inability to have lumbar epidural steroid injections given her labile diabetes, I do think she warrants follow-up surgical consultation. I have asked that she follow-up with her PCP for referral to a neurosurgeon of her PCPs preference. She lives in the [facility] and I am unfamiliar with neurosurgical or spinal orthopedic options in that region of [facility]. Assessment & Plan (08/12/2020 11:13 AM SPOOL SANDER): Patient has an antecedent history of L5-S1 laminectomy and subsequent fusion for left leg radiculopathy. She currently presents with a 3+ month history of low back pain with radiation down the right leg in an L45 radicular distribution. She does have a history of diabetes in her examination does have findings suggestive of comorbidity with peripheral neuropathy given absent reflexes in the lower extremities and decreased sensation in a symmetrical stocking distribution. However she does have weakness low in right L4-5 radicular pattern as well. I will order a EMG/NCS of the right lower extremity to assess for the possibility of acute denervation in the right lower extremity which would necessitate referral for spinal surgery consideration. If on the other hand no acute denervation is noted on testing, she may well be a good candidate for consideration of lumbar epidural steroid injections through her pain management program in [place]. I will see her back in the office upon completion of testing. Lumbar spondylosis 08/12/2020 Assessment & Plan (09/29/2020 1:05 PM SPOOL SANDER): Patient has prior neuroimaging demonstrating extensive lumbar spondylosis with foraminal stenosis. Assessment & Plan (08/12/2020 11:15 AM SPOOL SANDER): Patient has 3+ month history of recurrent low back pain now with right leg radicular symptoms. MRI demonstrates multilevel degenerative spondylosis with foraminal stenosis bilaterally. L5-S1 fusion is noted. Anxiety 07/21/2020 Type 2 diabetes mellitus without complication Malignant neoplasm of uterus 06/30/2020 Nicotine dependence 06/30/2020 Current Treatment and Therapy Plans No current plan information found. Past Treatment and Therapy Plans No past plan information found. Lifetime Dose Tracking * Chemical Lifetime Dose Automatic Entry Manual Entr y Fluoro Time 5.468 minutes 5.468 minutes 0 minutes Air kerma at the reference point (Ka,r) 459.554 mGy 4 59.554 mGy 0 mGy DLP 5,902 mGycm 5,902 mGycm 0 mGycm Resolved Problems Problem Noted Date Diagnosed Date Resolved Date Morbid obesity 01/11/2022 10/07/2022 Folic acid deficiency 10/23/20212022 BMI 39.0-39.9,adult 10/05/2021 10/07/19 23 Class 3 severe obesity due t o excess calories with serious comorbidity and body mass index (BMI) of 40.0 to 44.9 in adult 12/08/2020 3 Gastroesophageal reflux dise ase without esophagitis 08/06/2020 04/28/2023
--- OUTSIDE RECORDS SUMMARY | 2025-04-24 12:25 | XMS_ITS | Clinical Summary ---
Author Organization [facility] Address [address] [place] [address] Care Team Providers Care Compress Engineer Name Role Phone Sofia Teresa SHADE CLOTH FINISHER Unavailable [phone] Dario Byrnes PhD Unavailable [phone] Lidia Heck Primary Care Provider [phone] Allergies Active Allergy Reactions Criticality Noted Date Comments Aloe Hives,Itching Medium 03/03/2023 Aloe vera Exenatide Microspheres Unknown Medium 07/28/2021 Hydrochlorothiazide Shortness of breath,Anaphylaxis High 08/12/2020 Ondansetron Hives Medium 06/29/2022 Oxycodone-Acetaminophen Hallucinations Medium 08/12/20 20 Pravastatin Sodium Nausea & Vomiting Low 02/14/2025 Prednisone Anaphylaxis High 09/13/2024 Rosuvastatin Shortness of breath High 12/03/2021 Sulfa (Sulfonamide Antibiotics) Hives Medium 09/05/2022 Sulfacetamide Unknown 03/03/2023 Sulfa drugs Cannot recall reaction Sulfamethoxazole-Trimethop rim Unknown 01/06/2024 Dulaglutide Other (See comments),Nausea & Vomiting Low 03/24/2021 Abdominal pain Medications busPIRone (BUSPAR) 15 mg tabletIndications :Generalized Anxiety Disorder Take 1 tablet (15 mg total) by mouth 2 (two) times a day 08/10/20 21 Active multivitamin tablet Take 1 tablet by mouth 2 (two) times a day 60 tablet 5 01/13/20 22 Active escitalopram (LEXAPRO) 10 mg tabletIndications :Anxiety with Depression Take 1 tablet (10 mg total) by mouth lead warehouse associate before breakfast Active prochlorperazine (COMPAZINE) 10 mg tabletIndications :Nausea and Vomiting Take 1 tablet (10 mg total) by mouth as needed for nausea or vomiting Active ALPRAZolam (XANAX) 0.5 mg tabletIndications :anxiety Take 1 tablet (0.5 mg total) by mouth 2 (two) times a day QD 01/26/[address] (PROTONIX) 40 mg EC tabletIndications :gerd Take 1 tablet (40 mg total) by mouth every morning 01/26/20 23 Active PARoxetine (PAXIL) 10 mg tabletIndications :Tremors Take 1 tablet (10 mg total) by mouth every morning 04/29/20 23 Active amLODIPine (NORVASC) 10 mg tabletIndications :hypertension Take 1 tablet (10 mg total) by mouth every morning 03/29/20 23 Active senna (SENOKOT) 8.6 mg tabletIndications :constipation Take 1 tablet by mouth as needed for constipation Active baclofen (LIORESAL) 10 mg tabletIndications :Myelopathy TAKE ONE TABLET BY MOUTH EVERY DAY TWICE DAILY 60 tablet 5 01/02/20 25 Active albuterol HFA (PROVENTIL HFA,VENTOLIN HFA,PROAIR HFA) 90 mcg/actuation inhaler 2 puffs 10/18/19 25 Active econazole nitrate 1 % cream APPLY TO AFFECTED AREA FOR ABDOMINAL TWICE DAILY TUESDAY - Tuesday12/22/19 25 Active traMADoL (ULTRAM) 50 mg tablet Take by mouth 4 (four) times a day as needed 05/15/20 24 Active triamcinolone (KENALOG) 0.025 % cream APPLY TO AFFECTED AREA of THE TO RASH TWICE DAILY ON TUESDAY AND Tuesday12/25/19 25 Active betamethasone valerate (VALISONE) 0.1 % cream APPLY TO AFFECTED AREA of THE body (AVOID face) TWICE DAILY 2 WEEKS on/ 2 WEEKS off, REPEAT NEEDED for TO RASH flares 12/18/19 25 Active gabapentin (NEURONTIN) 400 mg capsuleIndication s:Neuropathic Pain,Restless Legs Syndrome Take 1 capsule (400 mg total) by mouth 2 (two) times a day 60 capsule 11 02/15/20 25 Active propranoloL (INDERAL) 20 mg tablet Take 1 tablet (20 mg total) by mouth 2 (two) times a day 60 tablet 02/15/20 25 Active Zepbound 5 mg/0.5 mL pen injectorIndicatio ns:BMI 36.0-36.9,adult INJECT 5MG UNDER THE SKIN EVERY WEEK 2 mL 3 03/25/20 25 Active nortriptyline (PAMELOR) 50 mg capsuleIndication s:Spinal stenosis of lumbar region with radiculopathy Take 1 capsule (50 mg total) by mouth nightly 30 capsule 04/19/20 25 026 Active nortriptyline (PAMELOR) 50 mg capsuleIndication s:Spinal stenosis of lumbar region with radiculopathy Take 1 capsule (50 mg total) by mouth nightly 30 capsule 03/04/20 25 025 Discontin ued(Reord er) Active Problems Problem Noted Date Diagnosed Date [...] (05/16/2021): Added automatically from request for surgery [id number] Irritable bowel syndrome 02/06/2021 Tobacco use disorder 01/06/2021 Essential hypertension 12/08/2020 Lumbar radiculopathy, right 08/12/2020 Assessment & Plan (09/29/2020 1:05 PM MANAGER ARMY): Patient shows ongoing active and chronic denervation [...] her PCPs preference. She lives in the [facility] and I am unfamiliar with neurosurgical or spinal orthopedic options in that region of [facility]. Assessment & Plan (08/12/2020 11:13 AM MANAGER ARMY): Patient has an antecedent history of L5-S1 [...] injections through her pain management program in [place]. I will see her back in the office upon completion of testing. Lumbar spondylosis 08/12/2020 Assessment & Plan (09/29/2020 1:05 PM MANAGER ARMY): Patient has prior neuroimaging demonstrating extensive lumbar spondylosis with foraminal stenosis. Assessment & Plan (08/12/2020 11:15 AM MANAGER ARMY): Patient has 3+ month history of recurrent low back pain now with right leg radicular symptoms. MRI demonstrates multilevel degenerative spondylosis with foraminal stenosis bilaterally. L5-S1 fusion is noted. Anxiety 07/21/2020 Type 2 diabetes mellitus without complication Malignant neoplasm of uterus 06/30/2020 Nicotine dependence 06/30/2020 Resolved Problems Problem Noted Date Diagnosed Date Resolved Date Morbid obesity 01/11/2022 10/07/2022 Folic acid deficiency 10/23/20212022 BMI 39.0-39.9,adult 10/05/2021 10/07/19 23 Class 3 severe obesity due t o excess calories with serious comorbidity and body mass index (BMI) of 40.0 to 44.9 in adult 12/08/2020 3 Gastroesophageal reflux dise ase without esophagitis 08/06/2020 04/28/2023 Encounters Date Type Department Care Team Description 04/15/2025 Telephone [facility] Medicine Neuro Muscle [address] 6th [place] [address] [place] [address] Vincenzo Narayanan RMA 04/12/2025 10:30 AM CDT Lab [facility] Medicine Endocrinology Metabolism and Lipid [address] 5th [place] [address] [place] [address] Type 2 diabetes mellitus without complication, with long-term current use of insulin (HCC); Mixed hyperlipidemia; High serum parathyroid hormone (PTH) 04/12/2025 10:23 AM CDT - 04/12/2025 11:59 PM CDT Hospital Encounter [address] [address] High serum parathyroid hormone (PTH) Discharge Disposition: Discharge to home or self care 04/12/2025 9:30 AM CDT Office Visit [facility] Endocrinology Metabolism and Lipid [address] [place] [address] [place] [address] Lila Thomas PA High serum parathyroid hormone (PTH) (Primary Dx); Type 2 diabetes mellitus without complication, with long-term current use of insulin (HCC); Essential hypertension; S/P bariatric surgery; Mixed hyperlipidemia 04/12/2025 Orders Only [facility] Endocrinology Metabolism and Lipid [address] [facility] [address]th [place] [address] [place] [address] Lila Thomas PA High serum parathyroid hormone (PTH) (Primary Dx) 04/12/2025 Results Follow-Up [facility] Endocrinology Metabolism and Lipid [address] [facility] [address]th [place] [address] [place] [address] Lila Thomas PA Albumin Creatinine Ratio, Urine, Lipid panel, Renal function panel, PTH 04/09/2025 Telephone [facility] Neuro Muscle [address] [address]th [place] [address] [place] [address] Vincenzo Narayanan RMA Bruno chair 04/08/2025 Orders Only [facility] Neuro Muscle [address] [facility] [address]th [place] [address] [place] [phone] Antonia Torres MD Cauda equina syndrome (HCC) (Primary Dx) 03/29/2025 Results Follow-Up [facility] - [facility] Minimally Invasive Surgery [address] [place] [address] Medical Office Building [address] [place] [address] Linh Holland NP Vitamin D 25 hydroxy, Vitamin B12, PTH, Additional followed-up results: 4 03/27/2025 3:15 PM CDT Lab [facility] [address] [place] [address] H/O gastric bypass; Intestinal malabsorption, unspecified type; BMI 28.0-28.9,adult 03/27/2025 1:30 PM CDT Office Visit [facility] Medicine Surgery [address] [facility] [address] 6th [place] [address] [place] [address] Faheem Ross MD Panniculitis (Primary Dx) 03/25/2025 4:00 PM CDT Telemedicine [facility] - [facility] Minimally Invasive Surgery [address] [facility] Medical Office Building [address] [place] [address] Linh Holland NP Weight loss counseling, encounter for (Primary Dx); H/O gastric bypass; Intestinal malabsorption, unspecified type; BMI 28.0-28.9,adult 03/25/2025 1:24 PM CDT - 03/25/2025 11:59 PM CDT Hospital Encounter [facility] [address] [place], [place] [id number] Smita Foster MD Spinal stenosis of lumbar region with radiculopathy (Primary Dx) Discharge Disposition: Discharge to home or self care 02/14/2025 11:00 AM CDT Office Visit [facility] Neurology [address] [place] [address] [place] [phone] Oral Mac MD Cauda equina syndrome (HCC) (Primary Dx); Idiopathic peripheral neuropathy; Restless leg syndrome; Weakness of both lower extremities; Essential tremor 02/04/2025 Telephone [facility] Neuro Muscle [address] [facility] [address] [place] [address] [place] [address] Vincenzo Narayanan, RADHA PT re-certification from Last 3 Months Immunizations Immunization Administration Dates Next Due Hep A, Adult 06/20/2022 Moderna SARS-CoV-2 Monovalent Vaccination (12+ Y RS) 09/29/2021 Tdap 04/26/2018 Surgical History Surgery Date Site/Laterality Comments APPENDECTOMY CHOLECYSTECTOMY 09/05/1992 - 09/04/1993 HYSTERECTOMY 09/05/2009 - 09/04/2010 BACK SURGERY 09/05/1999 - 09/04/2000 2011 RETINAL DETACHMENT SURGERY GASTRIC BYPASS 01/03/2022 - 02/02/2022 LUMBAR FUSION 06/05/2021 - 07/05/2021 Medical History Medical History Date Comments Cancer (HCC) Diabetes (HCC) Anxiety Depression Dermatitis Type 2 diabetes mellitus Gastric reflux Lumbar stenosis Disc disorder of lumbar region Peptic ulceration Hypercholesteremia Joint pain Irritable bowel syndrome Morbid obesity (HCC) Low back pain Vitamin D deficiency Osteoporosis 2009 PONV (postoperative nausea and vomiting) Mild nausea and vomiting Hypertension DDD (degenerative disc disease), cervical GERD (gastroesophageal reflux disease) Postoperative delirium 08/11/2022 per famil y she has a history of similari behavior after past surgeries Coccyx pain Bipolar disorder Fractures 10 yrs old Female infertility 01=[id number] Family History Medical History Relation Name Comments Arthritis Brother 1 Zuri Arthritis Brother 2 Zuri Depression Daughter 1 Kathie e Depression Daughter 2 Kathie e Hypertension Maternal Grandmother 1 Vickie Stroke Maternal Grandmother 1 Vickie Diabetes Maternal Grandmother 2 Vickie Hypertension Maternal Grandmother 2 Vickie Kidney disease Maternal Grandmother 2 Vickie Stroke Maternal Grandmother 2 Vickie Arthritis Mother 1 Zuri Heart disease Mother 1 Zuri Hypertension Mother 1 Zuri Kidney disease Mother 1 Zuri Vitamin D deficiency Mother 1 Zuri Arthritis Mother 2 Zuri Heart attack Mother 2 Zuri Heart disease Mother 2 Zuri Kidney disease Mother 2 Zuri Heart disease Paternal Grandfather Matthew Anesthesia problems Neg Hx Relation Name Status Comments Brother 1 Zuri Brother 2 Zuri Alive Daughter 1 Kathie e Daughter 2 Kathie e Alive Maternal Grandmother 1 Vickie Maternal Grandmother 2 Vickie Mother 1 Zuri Alive Mother 2 Zuri Paternal Grandfather Matthew Alive Social History Tobacco Use Types Packs/Day Years Used Date Smoking Tobacco: Former Cigarettes 0.8 29.4 1 992 - 01/27/2021 Passive Smoke Exposure: Past Smokeless Tobacco: Never Tobacco Cessation:Counseling Given: Not Answered Social Connection and Isolation Panel Answer Date Recorded In a typical week, how many times do you talk on the phone with family, friends, or neighbors? More than three times a week 08/13/2022 How often do you get togethe r with friends or relatives? Three times a week 08/13/2022 How often do you attend [facility]? 1 to 4 times per year 08/13/2022 Do you belong to any clubs o r organizations such as rastafarian groups, unions, fraternal or athletic groups, or [...] on file Legal Sex Female 8:26 AM MANAGER ARMY Gender Identity Female 01/06/2021 1:39 PM CDT Sexual Orientation Straight 01/06/2021 1: 39 PM CDT Obstetrics History Last Filed Vital Signs Vital Sign Reading Time Taken Comments Blood Pressure 109/76 04/12/2025 9:15 AM CDT Pulse 89 04/12/2025 9:15 AM CDT Temperature 36.8 C (98.2 F) 04/12/2025 9:15 AM CDT Respiratory Rate 18 03/25/2025 1:59 PM CDT Oxygen Saturation 97% 03/25/2025 1:59 PM CDT Inhaled Oxygen Concentration - - Weight 84.1 kg (185 lb 6.4 oz) 04/12/2025 9:15 A M CDT Height 166.8 cm (5' 5.67) 04/12/2025 9:15 AM CD T Body Mass Index 30.23 04/12/2025 9:15 AM CDT Plan of Treatment Health Maintenance Due Date Last Done Comments Dilated Eye Exam 1973 Foot Exam 1973 Regular Well Visit/Exam 18-64 1991 Pneumococcal vaccine <65 (1 of 2 - PCV) 1992 Depression Screening 08/10/2023 08/10/2022 Lung Cancer Screening 2023 Zoster Vaccine (1 of 2) 2023 Covid-19 Vaccine (4 - 2023-2 5 season) 2024 09/29/2021, 04/02/2021, 03/04/2021 Breast Cancer Screening-Mammogram 02/21/2025 024 Influenza Vaccine (#1) 2025 Hemoglobin A1C 07/14/2025 01/11/2025, 04/05, 10/24/2023, Additional history exists Albumin Creatinine Ratio, Urine 04/12/2026 , 06/17/2022 Lipid Panel 04/12/2026 04/12/2025, 01/04, 06/17/2022, Additional history exists eGFR 04/12/2026 04/12/2025, 03/0 02/2025, 07/18/2024, Additional history exists Colon Cancer Screening-Colonoscopy 01/11/20342023 DTaP/Tdap/Td Vaccine (4 - Td or Tdap) 08/31/2034 08/31/2024, 04/26/2018, 09/05/2014 Hepatitis C Screening Completed 06/17/2022 Goals Goal Patient Goal Type Associated Problems [...] lifestyle strategies and compensatory methods as needed Medical Devices Implanted Type Area Manager Garden Device Identifier Shelf Expiration Date Model / Serial / Lot Allosource Crushed Fresh Frozen Cancellous 1-4mm Graft 15ml Bone [id number] - [id number] Implanted:Qty: 1 on 08/11/2022 by Wayne Feng MD at [facility] N/A: Spine Lumbar Allosource [id number] 01/15/2023 [id number] / / [id number] Depuy Synthes Spine Expedium 6mm 40mm 1 Innie Polyaxial Spine Screw Bone Titanium [id number] - [id number] Implanted:Qty: 7 on 08/11/2022 by Wayne Feng MD at [facility] N/A: Back Depuy Synthes Spine [id number] / / Depuy Synthes Spine Expedium 6mm 45mm 1 Innie Polyaxial Spine Screw Bone Titanium [id number] - [id number] Implanted:Qty: 2 on 08/11/2022 by Wayne Feng MD at [facility] N/A: Back Depuy Synthes Spine [id number] / / Depuy Synthes Spine Expedium 6.5mm 50mm Polyaxial Spine Screw Bone Titanium 5.5mm Tao [id number] - [id number] Implanted:Qty: 5 on 08/11/2022 by Wayne Feng MD at [facility] N/A: Back Depuy Synthes Spine [id number] / / Depuy Synthes Spine Expedium 6.5mm 45mm Polyaxial Spine Screw Bone Titanium 5.5mm Tao [id number] - [id number] Implanted:Qty: 3 on 08/11/2022 by Wayne Feng MD at [facility] N/A: Back Depuy Synthes Spine [id number] / / Depuy Synthes Spine Expedium 7mm 55mm 1 Innie Polyaxial Spine Screw Bone Titanium [id number] - [id number] Implanted:Qty: 4 on 08/11/2022 by Wayne Feng MD at [facility] N/A: Back Depuy Synthes Spine [id number] / / Depuy Synthes Spine Expedium 7mm 60mm 1 Innie Polyaxial Spine Screw Bone Titanium [id number] - [id number] Implanted:Qty: 2 on 08/11/2022 by Wayne Feng MD at [facility] N/A: Back Depuy Synthes Spine [id number] / / Depuy Synthes Spine Expedium 7.5mm 45mm 1 Innie Polyaxial Spine Screw Bone Titanium [id number] - [id number] Implanted:Qty: 2 on 08/11/2022 by Wayne Feng MD at [facility] N/A: Back Depuy Synthes Spine [id number] / / Depuy Synthes Spine Expedium 7.5mm 50mm 1 Innie Polyaxial Spine Screw Bone Titanium [id number] - [id number] Implanted:Qty: 2 on 08/11/2022 by Wayne Feng MD at [facility] N/A: Back Depuy Synthes Spine [id number] / / Depuy Synthes Spine Expedium 7.5mm 55mm 1 Innie Polyaxial Spine Screw Bone Titanium [id number] - [id number] Implanted:Qty: 2 on 08/11/2022 by Wayne Feng MD at [facility] N/A: Back Depuy Synthes Spine [id number] / / Si-Bone Screw Spinal Sacral Lumbar Fusion Full Thread Solid Ifuse Torq 10.0x70mm Titanium [id number] - [id number] Implanted:Qty: 1 on 08/11/2022 by Wayne Feng MD at [facility] N/A: Spine Lumbar Si-Bone 11/13/2026 [id number] / / [id number] Allosource Crushed Chip Frozen Graft 30ml Bone Cancellous [id number] - [id number] Implanted:Qty: 1 on 08/11/2022 by Wayne Feng MD at [facility] N/A: Spine Lumbar Allosource [id number] 05/12/2027 [id number] / / [id number] Allosource Crushed Chip Frozen Graft 90ml Bone Cancellous [id number] - [id number] Implanted:Qty: 1 on 08/11/2022 by Wayne Feng MD at [facility] N/A: Spine Lumbar Allosource [id number] 03/24/2027 [id number] / / [id number] Si-Bone Screw Spinal Sacral Lumbar Fusion Full Thread Solid Ifuse Torq 10.0x70mm Titanium [id number] - [id number] Implanted:Qty: 1 on 08/11/2022 by Wayne Feng MD at [facility] N/A: Spine Lumbar Si-Bone 10/10/2026 [id number] / / [id number] Musculoskeletal Transplant Allograft Putty Freeze Dried Filler 10cc Bone Void Dbx 879725 - [id number] - [id number] Implanted:Qty: 1 on 08/11/2022 by Wayne Feng MD at [facility] N/A: Spine Lumbar Musculoskeletal Transplant 04/28/2024 [id number] / [id number] / Musculoskeletal Transplant Allograft Putty Freeze Dried Filler 10cc Bone Void Dbx 101273 - [id number] - [id number] Implanted:Qty: 1 on 08/11/2022 by Wayne Feng MD at [facility] N/A: Spine Lumbar Musculoskeletal Transplant 05/11/2024 [id number] / [id number] / Si-Bone Kit Spinal Sacroiliac Fusion Ifuse [place] 10.5x80mm [id number] - [id number] Implanted:Qty: 1 on 08/11/2022 by Wayne Feng MD at [facility] N/A: Spine Lumbar Si-Bone [id number] 05/22/2027 [id number] / / [id number] 2 Si-Bone Kit Spinal Sacroiliac Fusion Ifuse [place] 10.5x80mm [id number] - [id number] Implanted:Qty: 1 on 08/11/2022 by Wayne Feng MD at [facility] N/A: Spine Lumbar Si-Bone [id number] 05/22/2027 [id number] / / [id number] 2 Depuy Synthes Spine Expedium 6mm 35mm 1 Innie Polyaxial Spine Screw Bone Titanium [id number] - [id number] Implanted:Qty: 3 on 08/11/2022 by Wayne Feng MD at [facility] N/A: Back Depuy Synthes Spine [id number] / / Musculoskeletal Transplant Allograft Putty Freeze Dried Filler 10cc Bone Void Dbx 810868 - [id number] - [id number] Implanted:Qty: 1 on 08/18/2022 by Wayne Feng MD at [facility] N/A: Spine Lumbar Musculoskeletal Transplant 04/27/2024 [id number] / [id number] / Musculoskeletal Transplant Allograft Putty Freeze Dried Filler 10cc Bone Void Dbx 612862 - [id number] - [id number] Implanted:Qty: 1 on 08/18/2022 by Wayne Feng MD at [facility] N/A: Spine Lumbar Musculoskeletal Transplant 04/27/2024 [id number] / [id number] / Allosource Crushed Chip Frozen Graft 60ml Bone Cancellous [id number] - [id number] Implanted:Qty: 1 on 08/18/2022 by Wayne Feng MD at [facility] N/A: Spine Lumbar Allosource 06/12/2026 [id number] / / [id number] Si-Bone Screw Set Spinal Sacral Lumbar Threaded Ifuse [place] 200962 - [id number] Implanted:Qty: 2 on 08/18/2022 by Wayne Feng MD at [facility] N/A: Spine Lumbar Si-Bone [id number] / / Description:Set Screw Depuy Synthes Spine Implant Spinal X-Pac [id number] Pl [place] [id number] - [id number] Implanted:Qty: 2 on 08/18/2022 by Wayne Feng MD at [facility] N/A: Spine Lumbar Depuy Synthes Spine [id number] / / Expanding [employer] Cage Expandable Tlif 12mm X 28mm Lordotic 7-12.5mm Height [id number] - [id number] Implanted:Qty: 1 on 08/18/2022 by Wayne Feng MD at [facility] N/A: Spine Lumbar [employer] [id number] / / Depuy Synthes Spine Expedium 1 Inner Monoaxial Spine Screw Set Titanium [id number] - [id number] Implanted:Qty: 32 on 08/18/2022 by Wayne Feng MD at [facility] N/A: Spine Lumbar Depuy Synthes Spine [id number] / / Depuy Synthes Spine Tao Contour 455mm 5.0 Spinal Expedium Cocr [id number] - [id number] Implanted:Qty: 2 on 08/18/2022 by Wayne Feng MD at [facility] N/A: Spine Lumbar Depuy Synthes Spine [id number] / / Depuy Synthes Spine Expedium Viper 2 5.5mm 480mm Straight Tao Spinal [id number] - [id number] Implanted:Qty: 1 on 08/18/2022 by Wayne Feng MD at [facility] N/A: Spine Lumbar Depuy Synthes Spine [id number] / / Allosource Crushed Chip Frozen Graft 90ml Bone Cancellous [id number] - [id number] Implanted:Qty: 1 on 08/18/2022 by Wayne Feng MD at [facility] N/A: Spine Lumbar Allosource 08/14/2026 [id number] / [id number] / Procedures Procedure Name Priority Date/Time Associated Diagnosis Comments CALCIUM, IONIZED Routine 04/12/2025 10:2 3 AM CDT High serum parathyroid hormone (PTH) PTH Routine 04/12/2025 10:23 AM CDT High serum parathyroid hormone (PTH) RENAL FUNCTION PANEL Routine 04/12/2025 10:23 AM CDT High serum parathyroid hormone (PTH) LIPID PANEL Routine 04/12/2025 10:23 AM CDT Type 2 diabetes mellitus without complication, with long-term current use of insulin (HCC) Mixed hyperlipidemia ALBUMIN CREATININE RATIO, URINE Routine 04/12/2025 10:23 AM CDT Type 2 diabetes mellitus without complication, with long-term current use of insulin (HCC) POCT GLUCOSE [id number] Routine 04/12/2025 9: 19 AM CDT Type 2 diabetes mellitus without complication, with long-term current use of insulin (HCC) COPPER, SERUM Routine 03/27/2025 1:50 PM CDT H/O gastric bypass Intestinal malabsorption, unspecified type BMI 28.0-28.9,adult FERRITIN Routine 03/27/2025 1:50 PM CDT H/O gastric bypass Intestinal malabsorption, unspecified type BMI 28.0-28.9,adult FOLATE Routine 03/27/2025 1:50 PM CDT H/O gastric bypass Intestinal malabsorption, unspecified type BMI 28.0-28.9,adult IRON PROFILE W/ IBC Routine 03/27/2025 1:50 PM CDT H/O gastric bypass Intestinal malabsorption, unspecified type BMI 28.0-28.9,adult PTH Routine 03/27/2025 1:50 PM CDT H/O gastric bypass Intestinal malabsorption, unspecified type BMI 28.0-28.9,adult VITAMIN B1 Routine 03/27/2025 1:50 PM CDT H/O gastric bypass Intestinal malabsorption, unspecified type BMI 28.0-28.9,adult VITAMIN B12 Routine 03/27/2025 1:50 PM CDT H/O gastric bypass Intestinal malabsorption, unspecified type BMI 28.0-28.9,adult VITAMIN D 25 HYDROXY Routine 03/27/2025 1:50 PM CDT H/O gastric bypass Intestinal malabsorption, unspecified type BMI 28.0-28.9,adult POCT HEMOGLOBIN A1C Routine 01/11/2025 10:02 AM CDT History of type 2 diabetes mellitus SCREENING MAMMOGRAM BILATERAL W EDUARDO Schedule Routine, Read Routine (OP Routine) 02/22/2024 1:03 PM CDT Encounter for screening mammogram for malignant neoplasm of breast COLONOSCOPY 01/12/2024 8:19 AM CDT HEPATITIS C ANTIBODY Routine 06/17/2022 1:07 PM CDT JOHNSON (nonalcoholic steatohepatitis) from Last 3 Months or Most Recently Relevant to Health Maintenance Results * Calcium, ionized (04/12/2025 10:23 AM CDT) Calcium, Ionized 5.05 4.50 - 5.10 mg/dL Blood 04/12/2025 10:2 3 AM CDT 04/12/2025 11:30 AM CDT us Lila PADILLA LAB BLOOD ORDERABLES Di stock Result [facility] Department [place] [address] * Albumin Creatinine Ratio, Urine (04/12/2025 10:23 AM CDT) Microalb, Ur <7.0 0.0 - 22.9 mg/L [facility] Comment:Repeated and Verifie d Random Urine Creatinine 62.8 mg/dL [facility] Microalb/Creat Ratio <11.1 0.0 - 29.9 mg/g [facility] Urine 04/12/2025 10:2 3 AM CDT 04/12/2025 10:56 AM CDT Lila PADILLA LAB URINE ORDERABLES Di l Result Performing Organization Address City/[facility] Co de Phone Number [facility] * (ABNORMAL) PTH (04/12/2025 10:23 AM CDT) Parathyroid Hormone 67.4(H) 11.6 - 58.8 pg/mL [facility] Comment:PLEASE NOTE: REFEREN CE RANGE UPDATED EFFECTIVE 12/04/24 Blood 04/12/2025 10:2 3 AM CDT 04/12/2025 10:56 AM CDT Lila PADILLA LAB BLOOD ORDERABLES Di l Result Performing Organization Address City/[facility] Co de Phone Number [facility] * (ABNORMAL) Renal function panel (04/12/2025 10:23 AM CDT) Calcium 9.5 8.6 - 10.3 mg/dL [facility] Sodium 140 135 - 145 mmol/L [facility] Potassium 4.2 3.3 - 5.1 mmol/L [facility] Chloride 101 95 - 107 mmol/L [facility] CO2 Content 27 21 - 29 mmol/L [facility] Creatinine 0.73 0.60 - 1.10 mg/dL [facility] Glucose 77 64 - 99 mg/dL [facility] Comment: NONFASTING GLUCOSE RANGE = 64-199 mg/dL FASTING GLUCOSE 64 - 99 = NORMAL FASTING GLUCOSE 100 - 125 = IMPAIRED FASTING GLUCOSE FASTING GLUCOSE >=126 = PROVISIONAL DIAGNOSIS OF DIABETES BUN 5(L) 7 - 23 mg/dL [facility] Albumin 3.9 3.5 - 5.2 g/dL [facility] Phosphorus 3.6 2.3 - 4.5 mg/dL [facility] eGFR >90.0 >60.0 mL/min/1.7 3 m2 [facility] Blood 04/12/2025 10:2 3 AM CDT 04/12/2025 10:56 AM CDT Lila PADILLA LAB BLOOD ORDERABLES Di l Result Performing Organization Address City/[facility]/ZIP Co de Phone Number [facility] * Lipid panel (04/12/2025 10:23 AM CDT) Triglycerides 80 <150 mg/dL [facility] Comment: Desirable: <150 mg/dL, fasting <175 mg/dL, non-fasting Total Cholesterol 161 <200 mg/dL [facility] Total HDL-C Direct 51 >50 mg/dL [facility] Non-HDL cholesterol 110 <220 mg/dL [facility] Calculated LDL Chol 95 <190 mg/dL [facility] Blood 04/12/2025 10:2 3 AM CDT 04/12/2025 10:56 AM CDT Narrative [facility] - 04/12/2025 12:01 PM CDT Beginning January 02, 2025, LDL are now calculated by the Hanna-NIH equation (ANGELICA Cardiol 2020;5:540-8) which is more accuarate than the older Friedewald equation in patients with low LDL cholesterol or high triglycerides. For adults ages 40-79, the ACC/AHA recommends discussing your 10-year atherosclerotic cardiovascular disease risk with your health care provider. https://www.acc.org/ASCVDApp Lila PADILLA LAB BLOOD ORDERABLES Di l Result [facility] * POCT glucose (04/12/2025 9:19 AM CDT) Glucose Blood, POC 124 Normal Fasting 70 - 100, Random <200 mg/dL Blood 04/12/2025 9:19 AM CDT Result [facility] Lila PADILLA POINT OF CARE TEST ORDERA BLES Final Result * (ABNORMAL) Iron profile w/ IBC (03/27/2025 1:50 PM CDT) Iron 48 35 - 145 mcg/dL TIBC 273 250 - 400 mcg/dL [facility] Transferrin saturation 18(L) 20 - 50 % [facility] Blood 03/27/2025 1:50 PM CDT 03/27/2025 2:31 PM CDT Result [facility] Linh Holland NP LAB BLOOD ORDERABLES Final Result Performing Organization Address [facility] de Phone Number [facility] [address] * Copper, serum (03/27/2025 1:50 PM CDT) Copper 153 77 - 206 mcg/dL [facility] Comment: ADDITIONAL INFORMATION This test was developed and its performance characteristics determined by [facility] in a manner consistent with CLIA requirements. This test has not been cleared or approved by the U.S. Food and Drug Administration. Test Performed by: [facility] - [address] [address] [employer] Machine Feeder: Aston Trent Ph.D.; CLIA# [id number] Blood 03/27/2025 1:50 PM CDT 03/27/2025 2:48 PM CDT Linh Holland NP LAB BLOOD ORDERABLES Final Result Performing Organization Address [facility] Co de Phone Number [facility] [address] [facility] * Vitamin D 25 hydroxy (03/27/2025 1:50 PM CDT) [facility] Vitamin D 25-OH 54 30 - 80 ng/mL Blood 03/27/2025 1:50 PM CDT 03/27/2025 2:31 PM CDT Linh Amalia Holland SHADE CLOTH FINISHER LAB BLOOD ORDERABLES Final Result Performing Organization Address City/[facility]/ZIP Co de Phone Number [facility] [place] [address] * (ABNORMAL) Vitamin B1 (03/27/2025 1:50 PM CDT) [facility] Thiamine (Vit B1) 50(L) 70 - 180 nmol/L [facility] Comment: ADDITIONAL INFORMATION This test was developed and its performance characteristics determined by [facility] in a manner consistent with CLIA requirements. This test has not been cleared or approved by the U.S. Food and Drug Administration. Test Performed by: [address] [address] [employer]: Aston Trent Ph.D.; CLIA# [id number] Blood 03/27/2025 1:50 PM CDT 03/27/2025 2:48 PM CDT Linh Holland SHADE CLOTH FINISHER LAB BLOOD ORDERABLES Final Result Performing Organization Address City/[facility]/ZIP Co de Phone Number [facility] [place] [address] [facility] * (ABNORMAL) PTH (03/27/2025 1:50 PM CDT) [facility] PTH 88(H) 15 - 65 pg/mL Blood 03/27/2025 1:50 PM CDT 03/27/2025 2:30 PM CDT us Linh Holland SHADE CLOTH FINISHER LAB BLOOD ORDERABLES Final Result Performing Organization Address [facility] de Phone Number [facility] [place] [address] * Folate (03/27/2025 1:50 PM CDT) Folic acid >20.0 >=5.0 ng/mL Blood 03/27/2025 1:50 PM CDT 03/27/2025 2:31 PM CDT us Linh Holland SHADE CLOTH FINISHER LAB BLOOD ORDERABLES Final Result Performing Organization Address [facility] de Phone Number [facility] [place] [address] * Ferritin (03/27/2025 1:50 PM CDT) Ferritin 20 13 - 150 ng/mL Blood 03/27/2025 1:50 PM CDT 03/27/2025 2:31 PM CDT us Linh Holland SHADE CLOTH FINISHER LAB BLOOD ORDERABLES Final Result Performing Organization Address [facility] de Phone Number [facility] [place] [address] * Vitamin B12 (03/27/2025 1:50 PM CDT) Vitamin B12 470 230 - 1,250 pg/mL Blood 03/27/2025 1:50 PM CDT 03/27/2025 2:31 PM CDT us Linh Holland SHADE CLOTH FINISHER LAB BLOOD ORDERABLES Final Result Performing Organization Address [facility]/ZIP Co de Phone Number [facility] Department [place] [address] * POCT hemoglobin A1c (01/11/2025 10:02 AM CDT) Hemoglobin A1C, POC 5.2 4.0 - 5.6 % Blood 01/11/2025 10:0 2 AM CDT Bere Kinney MD POINT OF CARE TEST ORDERAB LES Final Result * Screening Mammogram Bilateral W Eduardo (02/22/2024 1:03 PM CDT) Anatomical Region Laterality Modality Breast Bilateral Mammography Narrative 02/23/2024 5:02 PM CDT Mammogram Technique: Bilateral Digital Breast Tomosynthesis, Bilateral C-view 2D Screening mammogram. Views obtained: bilateral craniocaudal and bilateral mediolateral oblique. Computer Aided Detection was performed. Mammogram Findings: The present examination has been compared to a prior imaging study performed at [place], [place] on 02/22/2022. The breasts are almost entirely fatty. There is no suspicious abnormality in either breast. Impression: There is no mammographic evidence of malignancy. Annual screening mammography is recommended. OVERALL FINAL ASSESSMENT: BI-RADS CATEGORY 1: Negative. Procedure Note Octavia Roque MD - 02/23/2024 Mammogram Technique: Bilateral Digital Breast Tomosynthesis, Bilateral C-view 2D Screening mammogram. Views obtained: bilateral craniocaudal and bilateral mediolateral oblique. Computer Aided Detection was performed. Mammogram Findings: The present examination has been compared to a prior imaging study performed at [place], [place] on 02/22/2022. The breasts are almost entirely fatty. There is no suspicious abnormality in either breast. Impression: There is no mammographic evidence of malignancy. Annual screening mammography is recommended. OVERALL FINAL ASSESSMENT: BI-RADS CATEGORY 1: Negative. us Provider Transcribed Order IMG MAMMO PROCEDURES Final Result * Colonoscopy (01/12/2024 8:19 AM CDT) Anatomical Region Laterality Modality Other Narrative Procedure Note David Vitale MD - 01/12/2024 8:19 AM CDT ENDOSCOPY LAB Patient Name: Linh Wang Procedure Date: 01/12/2024 8:19 AM Date of : 1975 Admit Type: Outpatient Age: 48 Gender: Female Attending MD: David Vitale M.D. Room: [facility] ENDOSCOPY ROOM 04 Note Status: Finalized Procedure: Colonoscopy Indications: Change in bowel habits; This was a two day bowel preparation. Comorbidities See the other procedure note for documentation of comorbidities Providers: David Vitale M.D. Referring MD: Roxy Chew M.D. Medicines: Monitored Anesthesia Care Complications: No immediate complications. Estimated Blood Loss: Estimated blood loss was minimal. Procedure: Pre-Anesthesia Assessment: - Prior to the procedure, a History and Physicalwas performed, and patient medications, allergies and sensitivities were reviewed. The patient'stolerance of previous anesthesia was reviewed. - Immediately prior to administration ofmedications, the patient was re-assessed for adequacy to receive sedatives. The benefits, risks and alternatives of theprocedure and sedation were discussed and informed consentwas obtained. All questions were answered. Please referto the signed informed consent document in the medical record. The scope was passed under direct vision.The [id number] was introduced through the anusand advanced to the terminal ileum. The colonoscopy was performed without difficulty. The patient tolerated the procedure well. The quality of the bowel preparation was evaluated using the BBPS (BostonBowel Preparation Scale) with scores of: Right Colon = 2 (minor amount of residual staining, small fragmentsof stool and/or opaque liquid, but mucosa seen well), Transverse Colon = 2 (minor amount of residual staining, small fragments of stool and/or opaque liquid, but mucosa seen well) and Left Colon = 2 (minor amount of residual staining, small fragmentsof stool and/or opaque liquid, but mucosa seen well).The total BBPS score equals 6. The quality of the bowel preparation was fair. Findings: The perianal and digital rectal examinations were normal. The terminal ileum appeared normal. A large amount of semi-liquid stool was found in the entire colon, interfering with visualization. Lavage of the area was performedusing copious amounts of normal saline, resulting in clearance with fair visualization. A 4 mm polyp was found in the transverse colon. The polyp wassessile. The polyp was removed with a cold snare. Resection and retrieval were complete. A few small-mouthed diverticula were found in the sigmoid colon. Non-bleeding internal hemorrhoids were found during retroflexion. Impression: - Preparation of the colon was fair. - The examined portion of the ileum was normal. - Stool in the entire examined colon. - One 4 mm polyp in the transverse colon, removedwith a cold snare. Resected and retrieved. - Diverticulosis in the sigmoid colon. - Non-bleeding internal hemorrhoids. Recommendation: - The patient will be observed post-procedure,until all discharge criteria are met. - Surveillance colonoscopy in 3 years pending pathology results with a two day bowelpreparation. - Continue home medications. - Resume previous diet. - Follow up with referring physician as previously scheduled. - In the unusual situation that you developabdominal, bleeding or other significant problems in the days following this procedure please call [phone] ask for my nurse, Yanna Gardner. After hours and evenings please call [phone] and speak to theGI fellow director of early childhood education. Please tell the fellow that Dr. Vitale did your procedure and that you were instructed to have the fellow call me or thephysician covering for me to discuss the management of your condition. If you have an urgent problem, please goto the nearest emergency room and have the ER doctorcall my office during the day or the GI fellow afterhours and weekends to arrange admission or transfer toour facility. Please bring this report with you if yougo to the emergency room. Attending Participation: I personally performed the entire procedure. Electronically signed by David Vitale MD David Vitale M.D. 01/12/2024 8:50:23 AM Number of Addenda: 0 Note Initiated On: 01/12/2024 8:19 AM us David Vitale MD ENDOSCOPY PROCEDURES Final Result * Hepatitis C antibody (06/17/2022 1:07 PM CDT) Hep C Ab Nonreactive Nonreactive DEVYN MORTENS[facility] Comment:Antibodies to HCV no t detected. Does NOT exclude the possibility of recent exposure to HCV. Blood 06/17/2022 1:07 PM CDT 06/17/2022 1:22 PM CDT us Roxy Chew MD LAB MICROBIO LOGY - GENERAL ORDERABLES Edited Result - Final DEVYN MORTENSEN [facility] Department [place] [address] from Last 3 Months or Most Recently Relevant to Health Maintenance Insurance MEDICARE [facility] FOR LIFE MEDICARE Advance Directives For more information, please contact: [phone] * Full Code (Latest Code Status on File) Date Activated Date Inactivated Comments 01/12/2024 7:11 AM 01/12/2024 1:37 PM * Full Code Date Activated Date Inactivated Comments 12/19/2023 8:09 AM 12/19/2023 1:01 PM * Full Code Date Activated Date Inactivated Comments 08/10/2022 11:49 AM 08/31/2022 7:38 PM * Full Code Date Activated Date Inactivated Comments 01/11/2022 2:00 PM 01/13/2022 5:09 PM * Full Code Date Activated Date Inactivated Comments 06/12/2021 5:36 PM 06/15/2021 2:06 PM Care Teams Compress Engineer Relationship Specialty Start Date End Date Lidia Heck PA [address] [place] [address] PCP - General Family Practice 08/22/24 Sofia Teresa NP [address] [address] Family Medicine 06/29/22 Dario Byrens, PhD [address] [id number] Referring Physician Psychology 07/21/22
--- OUTSIDE RECORDS SUMMARY | 2025-04-24 12:26 | XMS_ITS | Clinical Summary ---
Author Organization [facility] [address] [facility] Address [address] [place] [address] Care Team Providers Care Oracle Wms Consultant Name Role Phone Unavailable Primary Care Provider Unavailabl e Allergies Active Allergy Reactions Criticality Noted Date Comments Aloe Hives,Itching,Unknown High 03/03/2023 Aloe vera Aloe Vera-Dimethicone Hives High 06/08/2021 Dulaglutide Diarrhea,Hives,Nause a and Vomiting,Other (See Comments) High 03/24/2021 Abdominal pain Exenatide Microspheres Diarrhea,Hives,Un known ,Nausea and Vomiting High 07/28/2021 Ondansetron Hives High 08/12/2020 Oxycodone-Acetaminophen Hallucination Medium 0 Rosuvastatin Unknown,Shortness of Breath/Wheezing High 12/03/2021 Sulfacetamide Unknown 03/03/2023 Sulfa drugs Cannot recall reaction Sulfamethoxazole-Trimet hoprim Unknown 01/06/2024 Triamterene-Hydrochloro thiazid Unknown 01/06/2024 Medications amLODIPine (NORVASC) 10 mg tablet Take 10 mg by mouth daily. Active nortriptyline (PAMELOR) 50 mg capsule Take 50 mg by mouth daily at bedtime. Active pantoprazole (PROTONIX) 40 mg Tablet, Delayed Release (E.C.) Take 40 mg by mouth daily. Active prochlorperazi ne maleate (COMPAZINE) 10 mg tablet Take 10 mg by mouth every 6 hours as needed for Nausea/Mily sis. Active multivitamin (DAILY-MILLIE) tablet Take 1 Tablet by mouth daily. Active gabapentin (NEURONTIN) 300 mg capsule Take 300 mg by mouth 2 times daily. Active propranoloL (INDERAL) 20 mg tablet Take 20 mg by mouth 2 times daily. Active folic acid (FOLVITE) 1 mg tablet Take 1 mg by mouth daily. Active baclofen (LIORESAL) 10 mg tablet Take 5 mg by mouth 2 times daily. 5 mg in AM and 10 mg at night Active busPIRone (BUSPAR) 30 mg Tablet Take 1 Tablet (30 mg) by mouth 2 times daily. 60 Tablet 1 5 Active PARoxetine HCl (PAXIL) 20 mg tablet Take 1 Tablet (20 mg) by mouth daily. 30 Tablet 1 5 025 Active ALPRAZolam (XANAX XR) 0.5 mg Extended Release 24 hour tabletIndicati ons:ILA (generalized anxiety disorder) Take 1 Tablet (0.5 mg) by mouth 2 times daily. 60 Tablet 5 Active ALPRAZolam (XANAX XR) 0.5 mg Extended Release 24 hour tablet Take 0.5 mg by mouth 2 times daily. 025 Discontinued(Re order) escitalopram oxalate (LEXAPRO) 10 mg tablet Take 10 mg by mouth daily. 025 Discontinued busPIRone (BUSPAR) 15 mg Tablet Take 15 mg by mouth 2 times daily. 025 Discontinued(Re order) PARoxetine HCl (PAXIL) 10 mg tablet Take 10 mg by mouth daily. 025 Discontinued(Re order) traMADoL (ULTRAM) 50 mg tablet Take 50 mg by mouth every 6 hours as needed for Pain. 025 Discontinued Active Problems No known active problems Encounters Date Type Department Care Team Description 04/23/2025 8:46 AM CDT - 04/23/2025 11:59 PM CDT Hospital Encounter [facility] [address] [place] [phone] Antonia Ferreira MD Robles, Jose, Chemical Unit Operator Arrived Discharge Disposition: Home or Self Care 04/23/2025 8:45 AM CDT - 04/23/2025 11:59 PM CDT Hospital Encounter [facility] [address] [place] [phone] Lidia Heck PA-C Bugger, Valerie, Occupational Therapist Arrived Discharge Disposition: Home or Self Care 04/19/2025 8:48 AM CDT - 04/19/2025 11:59 PM CDT Hospital Encounter [facility] [address] [place] [phone] Antonia Ferreira MD Stephenson, Desirae Ann, Chemical Unit Operator Discharge Disposition: Home or Self Care 04/19/2025 8:46 AM CDT - 04/19/2025 11:59 PM CDT Hospital Encounter [facility] [address] [place] [phone] Lidia Heck, Laury Mello, Occupational Therapist Discharge Disposition: Home or Self Care 04/18/2025 10:00 AM CDT Confidential [address] [phone] Terri Trevino, MANAGER SCHOOL None 04/16/2025 9:30 AM CDT - 04/16/2025 11:59 PM CDT Hospital Encounter [facility] [address] [place] [phone] Antonia Ferreira MD Huber, Michelle, Physical Therapist Discharge Disposition: Home or Self Care 04/16/[address] [phone] Ron Jason, [facility] Establish Care 04/09/2025 9:16 AM CDT - 04/09/2025 11:59 PM CDT Hospital Encounter [facility] [address] [place] [phone] Antonia Ferreira MD Roth, Abigail Kathryn, Chemical Unit Operator Discharge Disposition: Home or Self Care 04/09/2025 8:43 AM CDT - 04/09/2025 11:59 PM CDT Hospital Encounter [facility] [address] [place] [phone] Lidia Heck PA-C Bugger, Valerie, Occupational Therapist Discharge Disposition: Home or Self Care 04/02/2025 1:59 PM CDT - 04/02/2025 11:59 PM CDT Hospital Encounter [facility] [address] [place] [phone] Lidia Heck PA-C Bugger, Valerie, Occupational Therapist Discharge Disposition: Home or Self Care 04/02/2025 12:50 PM CDT - 04/02/2025 11:59 PM CDT Hospital Encounter [facility] [address] [place] [phone] Antonia Ferreira MD Stephenson, Desirae Ann, Chemical Unit Operator Discharge Disposition: Home or Self Care 03/29/2025 1:48 PM CDT - 03/29/2025 11:59 PM CDT Hospital Encounter [facility] [address] [place] [phone] Lidia Heck PA-C Bugger, Valerie, Occupational Therapist Discharge Disposition: Home or Self Care 03/29/2025 1:45 PM CDT - 03/29/2025 11:59 PM CDT Hospital Encounter [facility] Therapy [address] [phone] Antonia Ferreira MD Stephenson, Desirae Ann, Chemical Unit Operator Discharge Disposition: Home or Self Care 03/22/2025 10:31 AM CDT - 03/22/2025 11:59 PM CDT Hospital Encounter [facility] [address] [place] [phone] Antonia Ferreira MD Kile, Joshua Ray, Chemical Unit Operator Discharge Disposition: Home or Self Care 03/20/2025 External Device Data STL ABSTRACTION Provider, Abstract 03/20/2025 External Device Data STL ABSTRACTION Provider, Abstract 03/19/2025 12:45 PM CDT - 03/19/2025 11:59 PM CDT Hospital Encounter [facility] [address] [place] [phone] Antonia Ferreira MD Robles, Jose, Chemical Unit Operator Discharge Disposition: Home or Self Care 03/19/2025 12:44 PM CDT - 03/19/2025 11:59 PM CDT Hospital Encounter [facility] [address] [place] [phone] Lidia Heck PA-C Bugger, Valerie, Occupational Therapist Discharge Disposition: Home or Self Care 03/12/2025 12:53 PM CDT - 03/12/2025 11:59 PM CDT Hospital Encounter [facility] [address] [place] [phone] Antonia Ferreira MD Stephenson, Desirae Ann, Chemical Unit Operator Discharge Disposition: Home or Self Care 02/27/2025 1:45 PM CDT - 02/27/2025 11:59 PM CDT Hospital Encounter [facility] [address] [place] [phone] Antonia Ferreira MD Stephenson, Desirae Ann, Chemical Unit Operator Discharge Disposition: Home or Self Care 02/20/2025 External Device Data STL ABSTRACTION Provider, Abstract 02/19/2025 10:52 AM CDT - 02/19/2025 11:59 PM CDT Hospital Encounter [facility] [address] [place] [phone] Antonia Ferreira MD Mattingly, Emily, Physical Therapist Discharge Disposition: Home or Self Care 02/12/2025 12:49 PM CDT - 02/12/2025 11:59 PM CDT Hospital Encounter [facility] [address] [place] [phone] Antonia Ferreira MD Robles, Jose, Chemical Unit Operator Discharge Disposition: Home or Self Care 02/12/2025 12:48 PM CDT - 02/12/2025 11:59 PM CDT Hospital Encounter [facility] [address] [place] [phone] Lidia Heck PA-C Bugger, Valerie, Occupational Therapist Discharge Disposition: Home or Self Care 02/08/2025 9:47 AM CDT - 02/08/2025 11:59 PM CDT Hospital Encounter [facility] [address] [place] [phone] Antonia Ferreira MD Kile, Joshua Ray, Chemical Unit Operator Discharge Disposition: Home or Self Care 02/04/2025 8:28 AM CDT - 02/04/2025 11:59 PM CDT Hospital Encounter [facility] [address] [place] [phone] Lidia Hcek PA-C Bugger, Valerie, Occupational Therapist Discharge Disposition: Home or Self Care 02/04/2025 7:49 AM CDT - 02/04/2025 11:59 PM CDT Hospital Encounter [facility] [address] [place] [phone] Antonia Ferreira MD Stephenson, Desirae Ann, Chemical Unit Operator Discharge Disposition: Home or Self Care 02/01/2025 12:58 PM CDT - 02/01/2025 11:59 PM CDT Hospital Encounter [facility] [address] [place] [phone] Antonia Ferreira MD Mattingly, Emily, Physical Therapist Discharge Disposition: Home or Self Care 02/01/2025 12:55 PM CDT - 02/01/2025 11:59 PM CDT Hospital Encounter [facility] [address] [place] [phone] Lidia Heck PA-C Bugger, Valerie, Occupational Therapist Discharge Disposition: Home or Self Care 01/29/2025 12:39 PM CDT - 01/29/2025 11:59 PM CDT Hospital Encounter [facility] [address] [place] [phone] Antonia Ferreira MD Mattingly, Emily, Physical Therapist Discharge Disposition: Home or Self Care 01/25/2025 12:54 PM CDT - 01/25/2025 11:59 PM CDT Hospital Encounter [facility] [address] [place] [phone] Antonia Ferreira MD Stephenson, Desirae Ann, Chemical Unit Operator Discharge Disposition: Home or Self Care 01/23/2025 External Device Data STL ABSTRACTION Provider, Abstract 01/22/2025 12:49 PM CDT - 01/22/2025 11:59 PM CDT Hospital Encounter [facility] [address] [place] [phone] Antonia Ferreira MD Stephenson, Desirae Ann, Chemical Unit Operator Discharge Disposition: Home or Self Care from Last 3 Months Social History Tobacco Use Types Packs/Day Years Used Date Smoking Tobacco: Never Smokeless Tobacco: Never Tobacco Cessation:Counseling Given: Not Answered Alcohol Use Standard Drinks/Week Comments Never 0 (1 standard drink = 0.6 oz pur e alcohol) Comments Unknown Sex and Gender Information Value Date Recorded Sex Assigned at Not on file Legal Sex Female 11:20 AM 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/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 Gender Identity Not on file Sexual Orientation Not on file Last Filed Vital Signs Vital Sign Reading Time Taken Comments Blood Pressure 131/81 01/27/2024 12:10 PM CDT Pulse 63 01/27/2024 12:10 PM CDT Temperature 36.9 C (98.5 F) 01/27/2024 10:10 AM CDT Respiratory Rate 18 01/27/2024 12:10 PM CDT Oxygen Saturation 97% 01/27/2024 12:10 PM CDT Inhaled Oxygen Concentration - - Weight 83 kg (183 lb) 04/18/2025 9:52 AM CDT Height 165.1 cm (5' 5) 04/18/2025 9:52 AM CDT Body Mass Index 30.45 04/18/2025 9:52 AM CDT Plan of Treatment Upcoming Encounters Date Type Department Care Team (Late st Contact Info) Description 04/26/2025 10:00 AM CDT Appointment [facility] [address] [place] [phone] Antonia Ferreira MD [address] [place] [phone] Georgia Nathan Chemical Unit Operator 04/30/2025 9:00 AM CDT Appointment [facility] [address] [place] [phone] Lidia Heck PA-C [address] [place] [phone] Laury Steen, Occupational Therapist 04/30/2025 10:00 AM CDT Appointment [facility] [address] [place] [phone] Antonia Ferreira MD [address] [place] [phone] Olegario Castro Chemical Unit Operator 05/03/2025 10:00 AM CDT Appointment [facility] [address] [place] [phone] Antonia Ferreira MD [address] [place] [phone] Diana Trejo, Chemical Unit Operator 05/07/2025 9:00 AM CDT Appointment [facility] [address] [place] [phone] Lidia Heck PA-C [address] [place] [phone] Laury Steen, Occupational Therapist 05/07/2025 10:00 AM CDT Appointment [facility] [address] [place] [phone] Antonia Ferreira MD [address] [place] [phone] Nancy Coughlin, Chemical Unit Operator 05/09/2025 8:00 AM CDT Confidential [facility] [address] [phone] [address] [phone] 05/10/2025 11:00 AM CDT Appointment [facility] [address] [place] [phone] Antonia Ferreira MD [address] [place] [phone] Diana Trejo, Chemical Unit Operator 05/14/2025 9:00 AM CDT Appointment [facility] [address] [place] [phone] Lidia Heck PA-C [address] [place] [phone] Laury Steen, Occupational Therapist 05/14/2025 10:00 AM CDT Appointment [facility] [address] [place] [phone] Antonia Ferreira MD [address] [place] [phone] Nancy Coughlin Chemical Unit Operator 05/17/2025 11:00 AM CDT Appointment [facility] [address] [place] [address] [place] [phone] Antonia Ferreira MD [address] [place] [phone] Diana Trejo Chemical Unit Operator 05/21/2025 9:00 AM CDT Appointment [facility] [address] [place] [phone] Lidia Heck PA-C [address] [place] [phone] Laury Steen Occupational Therapist 05/21/2025 10:00 AM CDT Appointment [facility] [address] [place] [phone] Antonia Ferreira MD [address] [place] [phone] Nancy Coughlin Chemical Unit Operator 05/22/2025 9:00 AM CDT Confidential [facility] [address] [phone] Terri Trevino, [address] [place] [phone] 05/24/2025 11:00 AM CDT Appointment [facility] [address] [place] [phone] Antonia Ferreira MD [address] [place] [phone] Diana Trejo Chemical Unit Operator 05/28/2025 9:00 AM CDT Appointment [facility] [address] [place] [phone] Lidia Heck PA-C [address] [place] [phone] Laury Steen, Occupational Therapist 05/28/2025 10:00 AM CDT Appointment [facility] [address] [place] [phone] Antonia Ferreira MD [address] [place] [phone] Olegario Castro Chemical Unit Operator 05/31/2025 11:00 AM CDT Appointment [facility] [address] [place] [phone] Antonia Ferreira MD [address] [place] [phone] Diana Trejo Chemical Unit Operator 06/04/2025 9:00 AM CDT Appointment [facility] [address] [place] [phone] Lidia Heck PA-C [address] [place] [phone] Laury Steen Occupational Therapist 06/04/2025 10:00 AM CDT Appointment [facility] [address] [place] [phone] Antonia Ferreira MD [address] [place] [phone] Diana Trejo Chemical Unit Operator 06/07/2025 11:00 AM CDT Appointment [facility] [address] [facility] [address] [facility] [address] [place] [address] Antonia Ferreira MD [address] [place] [address] Diana Trejo, Chemical Unit Operator Health Maintenance Due Date Last Done Comments DIABETES ANNUAL FOOT EXAM 1991 DIABETES ANNUAL RETINAL EXAM 1991 DIABETES MICROALBUMIN ANNUAL SCREEN 1991 LDL CHOLESTEROL ANNUAL 1991 HEPATITIS B VACCINES (1 of 3 - 19+ 3-dose series) 1992 07/21/2022, 04/29/2022 Traditional Medicare (ACO) A nnual Wellness Visit 1992 HPV/Cotest (21-29) 1994 CERVICAL CANCER SCREENING 2003 HPV/Cotest (30-65) 2003 PAP SMEAR 2003 FIT-DNA Q 3 years 2018 FIT/FOBT Q 1 year 2018 ZOSTER VACCINE (1 of 2) 2023 COVID-19 Vaccine ( - 2023-2 5 season) 2024 09/29/2021, 04/02/2021, 03/04/2021 BREAST CANCER SCREENING 02/21/2025 02/22/2024, 02/21 INFLUENZA VACCINE (#1) 2025 DIABETES HBA1C Q 6 MONTHS 07/14/20252024, 04/19/2024, 10/24/2023 Flex Sig/CT Colonography Q 5 years 12/18/20282023 COLORECTAL SCREENING 01/11/2034 01/12/2024, 01/12/2024, 01/12/2024, Additional history exists Colorectal Cancer Screening 01/11/2034 DTAP/TDAP/TD VACCINES (4 - T d or Tdap) 08/31/2034 08/31/2024, 04/26/2018, 09/05/2014 Insurance MEDICARE PART A AND B FOR LIFE MEDICARE PART A AND B FOR LIFE
--- OUTSIDE RECORDS SUMMARY | 2025-04-24 12:26 | XMS_ITS | Encounter Summary ---
Author Organization [facility] Address [address] [place] [address] Phone Care Team Providers Care Asset Protection Representative Name Role Phone Sofia Teresa NP Primary Care Provider [phone] Sofia Teresa NP Unavailable [phone] Dario Byrnes PhD Unavailable [phone] Lidia Heck Primary Care Provider Encounter Details Date Type Department Care Team (Late st Contact Info) Description 08/10/2022 Telephone [facility] Medicine Scheduling [address] [place] [address] Rosi Humphreys CMA Social History Tobacco Use Types Packs/Day Years Used Date Smoking Tobacco: Former Cigarettes 1 29.4 1 992 - 01/27/2021 Smokeless Tobacco: [...] often do you attend chur ch or yazdanism services? 1 to 4 times per year 08/13/2022 Do you belong to any clubs o r organizations such as alevism groups, unions, fraternal or athletic groups, or school groups? No 08/13/2022 How often do you attend meet ings of the clubs or organizations you belong to? Never 08/13/2022 Are you , , di vorced, , never , or living with a partner? 08/13/2022 AUDIT-C Answer Date Recorded Q1: How often do you have a drink containing alc ohol? Never 08/03/2022 Q2: How many drinks containi ng alcohol do you have on a typical day when you are drinking? 1 or 2 08/03/2022 Q3: How often do you have six or more drinks on one occasion? Never 08/03/2022 Overall Financial Resource Strain (CARDIA) Answe r [...] you got the money to buy more. Sometimes true Within the past 12 months, t he food you bought just didn't last and you didn't have money to get more. Never true 05/2022 PRAPARE - Transportation Answer Date Re corded [...] a nursing home (including now)? No 08/13/2022 Comments No Sex and Gender Information Value Date Recorded Sex Assigned at Not on file Legal Sex Female 8:26 AM PACS ADMINISTRATOR Gender Identity Female 01/06/2021 1:39 PM CDT Sexual Orientation Straight 01/06/2021 1: 39 PM CDT documented as of this encounter Plan of Treatment Not on file documented as of this encounter Visit Diagnoses Not on filedocumented in this encounter Care Teams Asset Protection Representative Relationship Specialty Start Date End Date Sofia Teresa NP [address] [address] PCP - General Family Medicine 07/01/22 08/21/24 Lidia [place] [address] PCP - General Family Practice 08/22/24 Sofia Teresa NP [address] [address] Family Medicine 06/29/22 Dario Byrnes, PhD [address] [address] Referring Physician Psychology 07/21/22 documented as of this encounter
--- OUTSIDE RECORDS SUMMARY | 2025-04-24 12:26 | XMS_ITS | Patient Health Record ---
Author Organization [facility] Address [address] [place], [place] [id number] Support Name Relationship Address Phone MELANIA MILLER Guarantor Unknown Reason For Referral No Information Medications Medication SIG (Take, Route, Frequency, Duration) Notes Start Date End Date Status tramadol hydrochloride 50 MG Oral Tablet ORAL tramadol hydrochloride 50 MG Oral TabletOriginal Medicationtramadol hydrochloride 50 MG Oral Tablet *Reorder from [employer] for eRx and Interaction Alerts* 4 Active pantoprazole 20 MG Delayed Release Oral Tablet [Protonix] ORAL pantoprazole 20 MG Delayed Release Oral Tablet [Protonix]Original Medicationpantoprazole 20 MG Delayed Release Oral Tablet [Protonix] *Reorder from [employer] for eRx and Interaction Alerts* 4 Active metformin hydrochloride 1000 MG Oral Tablet ORAL metformin hydrochloride 1000 MG Oral TabletOriginal Medicationmetformin hydrochloride 1000 MG Oral Tablet *Reorder from [employer] for eRx and Interaction Alerts* 4 Active ciclopirox 80 MG/ML Topical Solution CUTANEOUS ciclopirox 80 MG/ML Topical SolutionOriginal Medicationciclopirox 80 MG/ML Topical Solution *Reorder from [employer] for eRx and Interaction Alerts* 4 Active Metoprolol Tartrate 25 MG Oral Tablet ORAL metoprolol tartrate 25 MG Oral TabletOriginal Medicationmetoprolol tartrate 25 MG Oral Tablet *Reorder from [employer] for eRx and Interaction Alerts* 4 Active Lisinopril 20 MG Oral Tablet ORAL lisinopril 20 MG Oral TabletOriginal Medicationlisinopril 20 MG Oral Tablet *Reorder from [employer] for eRx and Interaction Alerts* 4 Active carisoprodol 250 MG Oral Tablet [Soma] ORAL carisoprodol 250 MG Oral Tablet [Soma]Original Medicationcarisoprodol 250 MG Oral Tablet [Soma] *Reorder from [facility] for eRx and Interaction Alerts* 4 Active bupropion hydrochloride 100 MG Oral Tablet ORAL bupropion hydrochloride 100 MG Oral TabletOriginal Medicationbupropion hydrochloride 100 MG Oral Tablet *Reorder from [facility] for eRx and Interaction Alerts* 4 Active alprazolam 1 MG Oral Tablet [Xanax] ORAL alprazolam 1 MG Oral Tablet [Xanax]Original Medicationalprazolam 1 MG Oral Tablet [Xanax] *Reorder from [facility] for eRx and Interaction Alerts* 4 Active 12 HR fexofenadine hydrochloride 60 MG / pseudoephedrine hydrochloride 120 MG Extended Release Oral Tablet [Lima-D] ORAL 12 HR fexofenadine hydrochloride 60 MG / pseudoephedrine hydrochloride 120 MG Extended Release Oral Tablet [Lima-D]Original [id number] HR fexofenadine hydrochloride 60 MG / pseudoephedrine hydrochloride 12 4 Active Plan Of Treatment No Information
[2025-04-24 13:23] LABS: Alanine Aminotransferase 38 U/L (6-35); Albumin Level 4.1 g/dL (3.5-5.1); Alkaline Phosphatase 111 U/L (38-126); Anion Gap 4 mmol/L (4-12); Aspartate Amino Transferase 46 U/L (14-36); Bilirubin,Total 0.3 mg/dL (0.2-1.3); Blood Urea Nitrogen 10 mg/dL (7-17); Calcium 9.5 mg/dL (8.4-10.2); Carbon Dioxide 30 mmol/L (22-30); Chloride 103 mmol/L (98-107); Estimated CRCL calculation 88 ml/min; Estimated Glomerular Filt Rate > 60; Glucose 92 mg/dL (65-110); Potassium 4.3 mmol/L (3.4-5.0); Sodium 137 mmol/L (137-145); Total Protein 7.3 g/dL (6.3-8.2)
[2025-04-24 13:35] LABS: Hematocrit 42.3 % (37.0-47.0); Hemoglobin 13.4 g/dL (12.0-15.0); Immature Granulocyte Percent A 0.3 % (0-0.5); Lymphocytes Absolute Auto 2.13 K/mm3 (0.9-3.2); Mean Corpuscular HGB Conc 31.7 g/dl (32-36); Mean Corpuscular Hemoglobin 28.9 pg (26-34); Mean Corpuscular Volume 91.2 fl (80-100); Nucleated Red Blood Cells Absolute Auto 0.000 K/mm3 (0.0-0.012); Nucleated Red Blood Cells Perc 0.0 % (0.0-0.2); Platelet Count Result 339 k/mm3 (150-375); Red Blood Count 4.64 M/mm3 (4.2-5.4); White Blood Count 10.0 K/mm3 (4.5-10.0)
[2025-04-24 13:51] LABS: INR 0.9; Prothrombin Time 12.7 Seconds (11.1-14.7)
--- NOTE | 2025-04-24 13:51 | ED_ITS ---
HPI - Fall General Chief Complaint: Fall Stated Complaint: Fall off 1 step-right arm/side injury Time Seen by Provider: 04/24/25 12:10 Source: patient and family Mode of arrival: ambulatory Limitations: no limitations History of Present Illness HPI Narrative: 49-year-old status post back surgery 2021 here with a complains of right shoulder, elbow pain. Patient states that she lost her balance and fell backwards and hit her head and shoulder she denies LOC. She states that it is extremely painful to move her shoulder. complaint: fall Onset (ago): hour(s) (1) Fall from: standing Fall witnessed: yes, by family Place fall occurred: home Loss of consciousness: none Symptoms prior to fall: none Context: tripped/slipped Location of injury: head Location of injury - extremities: Right: shoulder Related Data Allergies Allergy/AdvReac Type Severity Reaction Status Date / Time aloe AdvReac Intermediate Rash Verified 04/24/25 11:46 ondansetron (From Zofran) AdvReac Intermediate Rash Verified 04/24/25 11:51 rosuvastatin AdvReac Unknown Unknown Verified 04/24/25 11:46 Review of Systems 2 Review of Systems: All systems reviewed & are unremarkable except as noted in HPI and below Constitutional: Constitutional: Reports no additional constitutional complaints Eyes: Eyes: Reports no additional eye complaints ENT: Reports system reviewed and no additional complaints, except as documented Cardiovascular: Cardiovascular: Reports no additional cardiovascular complaints Respiratory: Respiratory: Reports no additional respiratory complaints Gastrointestinal: Gastrointestinal: Reports no additional gastrointestinal complaints Musculoskeletal: Musculoskeletal: Reports as per HPI Integumentary/Breasts: Skin/Breast: Reports system reviewed and no additional complaints, except as docu Exam 2 Narrative: GENERAL: Well-appearing, well-nourished, and in no acute distress. HEAD: Normocephalic, atraumatic. EYES: PERRLA and EOMI. ENT: Nares clear, no rhinorrhea or epistaxis. Mucous membranes moist. NECK: Supple. CHEST: Clear to auscultation. No respiratory distress. HEART: Regular rate and rhythm. No murmur heard. Normal peripheral pulses. EXTREMITIES: Normal range of motion. No edema. painful ROM on the right upper ext , no deformity , has multiple ecchymotic spots on both ext .( chronic) SKIN: Warm, dry, no rash. NEURO: No focal deficits. Alert and oriented x3. PSYCH: Normal mood and affect. Course Course Emergency Course: Notified patient about her lab work, CT and x-ray findings. Advised her to take pain medication. Fall precautions advised Vital Signs Vital signs: Vital Signs Temperature 36.5 C 04/24/25 11:38 Pulse Rate 83 04/24/25 11:38 Respiratory Rate 16 04/24/25 11:38 Blood Pressure 130/90 04/24/25 11:38 Pulse Oximetry 100 04/24/25 11:38 Oxygen Delivery Room Air 04/24/25 11:38 Temperature 36.5 C 04/24/25 11:38 Pulse Rate 83 04/24/25 11:38 Respiratory Rate 16 04/24/25 11:38 Blood Pressure 130/90 04/24/25 11:38 Pulse Oximetry 100 04/24/25 11:38 Oxygen Delivery Room Air 04/24/25 11:38 MDM - Fall Differential Diagnosis Differential diagnosis: Likely dislocation of shoulder region, concussion without loss of consciousness and other (elbow fracture) Medical Records Attestation: I reviewed the patient's medical records. Lab Data Attestation: I reviewed the patient's lab results. 04/24/25 13:06 04/24/25 13:06 Labs: Lab Results 04/24/25 Range/Units 13:06 WBC 10.0 (4.5-10.0) K/mm3 RBC 4.64 (4.2-5.4) M/mm3 Hgb 13.4 (12.0-15.0) g/dL Hct 42.3 (37.0-47.0) % MCV 91.2 (80-100) fl MCH 28.9 (26-34) pg MCHC 31.7 L (32-36) g/dl RDW 14.8 H (11.5-14.5) % Plt Count 339 (150-375) k/mm3 MPV 9.4 (7.4-10.4) fl Immature Gran % (Auto) 0.3 (0-0.5) % Neut % (Auto) 71.1 (45.5-73.1) % Lymph % (Auto) 21.4 (18.3-44.2) % [place] % (Auto) 5.2 (2.6-8.5) % Eos % (Auto) 1.4 (0-4.4) % Baso % (Auto) 0.6 (0.2-1.2) % Lymph # (Auto) 2.13 (0.9-3.2) K/mm3 [place] # (Auto) 0.5 (0.1-0.6) K/mm3 Eos # (Auto) 0.1 (0-0.3) K/mm3 Baso # (Auto) 0.1 (0.0-0.1) K/mm3 Abs Immat Gran (auto) 0.03 (0.00-0.031) K/mm3 Absolute Neuts (auto) 7.1 H (1.3-6.7) K/mm3 Absolute Nucleated RBC 0.000 (0.0-0.012) K/mm3 Nucleated RBC % 0.0 (0.0-0.2) % PT Pending INR Pending Sodium 137 (137-145) mmol/L Potassium 4.3 (3.4-5.0) mmol/L Chloride 103 (98-107) mmol/L Carbon Dioxide 30 (22-30) mmol/L Anion Gap 4 (4-12) mmol/L BUN 10 (7-17) mg/dL Creatinine 0.70 (0.7-1.0) mg/dL Estim Creat Clear Calc 88 ml/min Estimated GFR > 60 (59 - ) Glucose 92 (65-110) mg/dL Calcium 9.5 (8.4-10.2) mg/dL Total Bilirubin 0.3 (0.2-1.3) mg/dL AST 46 H (14-36) U/L ALT 38 H (6-35) U/L Alkaline Phosphatase 111 (38-126) U/L Total Protein 7.3 (6.3-8.2) g/dL Albumin 4.1 (3.5-5.1) g/dL Imaging Data Radiologist's impression: ITS Impressions Head CT 04/24/25 13:11 IMPRESSION: No evidence for acute intracranial hemorrhage or calvarial fracture. Near complete opacification of the left maxillary sinus. Correlate clinically to rule out acute sinusitis. Discharge Plan Discharge Clinical Impression: Contusion of right shoulder Qualifiers: Encounter type: initial encounter Qualified Code(s): S40.011A - Contusion of right shoulder, initial encounter Contusion of elbow, right Qualifiers: Encounter type: initial encounter Qualified Code(s): S50.01XA - Contusion of right elbow, initial encounter Head injury Qualifiers: Encounter type: initial encounter Qualified Code(s): S09.90XA - Unspecified injury of head, initial encounter Patient Disposition: Home Condition: Stable Instructions: Contusion in Adults (ED) Patient Language: German Prescriptions: New hydrocodone-acetaminophen 5-325 mg tablet 1 tablet PO Q6H PRN (Reason: pain) Qty: 14 0RF Follow-up/Referrals: Serjio Yousif MD [Physician, Family Practice] UNKNOWN,DOCTOR [Primary Care Provider] Time of Disposition: 13:56
== END 2025-04-24 14:13 | disposition home or self-care (01) ==
PROVIDERS: Emergency Provider Family Medicine
DX: S40.011A Contusion of right shoulder, initial encounter (principal); S50.01XA Contusion of right elbow, initial encounter; S09.90XA Unspecified injury of head, initial encounter; W18.30XA Fall on same level, unspecified, initial encounter
CPT/HCPCS: 36415; 70450; 73030; 73060; 73080; 80053; 85025; 85610; 99284; A4565